=== PATIENT | female | born 1985 | race Caucasian/White ===

== ENCOUNTER → 2016-10-14 | Outpatient (CLI) | payer OTHER ==
--- NOTE | 2016-10-14 15:05 | CT ---
EXAMINATION TYPE: CT ChestAbdPelvis w con DATE OF EXAM: 10/14/2016 2:07 PM COMPARISON: CT chest 03/19/2015 HISTORY: 31-year-old female with weight loss, changes in bowel habits. Lost 23 pounds over the past c ouple months. TECHNIQUE: Contiguous axial scanning of the chest, abdomen, and pelvis performed with IV Contrast, pa tient injected with 100 mL of Omnipaque 300. Delayed images through the kidneys were obtained. Knight l/sagittal reconstructions performed. CT DLP: 423.4 mGycm Automated exposure control for dose reduction was used. FINDINGS: CHEST: The heart is normal size without pericardial effusion. There is normal caliber with conventional arch vessel branching anatomy. No thoracic lymphadenopathy. Evaluation of the lungs shows no consolidation or pleural effusion. ABDOMEN: The liver is enlarged measuring 19.1 cm craniocaudal with diffuse low-attenuation. No biliary ductal dilatation. Portal venous system is patent. There is some focal fatty sparing seen along the anterior falciform ligament. Cholecystectomy clips are present. Adrenal glands, kidneys, spleen, and pancreas appear within normal limits. No dilated small bowel, free fluid, or free air. Appendix not seen, possibly surgically absent. There is unusual, a haustral appearance to the colon and suggestion of mild circumferential wall thic kening which is at the splenic flexure and proximal third transverse colon. Oral contrast has progres sed to the proximal transverse colon. There is moderate scattered stool. Pelvis: Bladder is urine distended. The cecum hangs low in the right hemipelvis with some mass effect onto th e bladder. Uterus and ovaries are visualized with follicular change. No abnormal fluid collection in the pelvis or pelvic lymphadenopathy seen. Bones: No osseous destructive process. IMPRESSION: 1. UNUSUAL AHAUSTRAL APPEARANCE TO THE COLON WITH SUGGESTION OF MILD CIRCUMFERENTIAL WALL THICKENING AT THE HEPATIC FLEXURE AND PROXIMAL TRANSVERSE COLON. CORRELATE FOR NONSPECIFIC COLITIS INCLUDING THE POSSIBILITY OF IBD. 2. HEPATOMEGALY AND HEPATIC STEATOSIS. CORRELATE WITH LFT's, LIPID PROFILE, AND PATIENT RISK FACTORS.
== END | disposition home or self-care (01) ==
LOC: RADCTMAIN 12:10
PROVIDERS: ATTEND Family Medicine
DX: K76.0 Fatty (change of) liver, not elsewhere classified (principal); R16.0 Hepatomegaly, not elsewhere classified; K63.89 Other specified diseases of intestine
CPT/HCPCS: 71260; 74177; Q9967

== ENCOUNTER 2017-07-27 12:51 | Inpatient (IN) | payer OTHER ==
[2017-07-27 14:25] LABS: Appearance,Urine Cloudy (Clear); Bacteria,Urine Rare /hpf; Bilirubin,Urine 1+ (Negative); Blood,Urine Negative (Negative); Color,Urine Light Brown; Glucose,Urine (UA) Negative (Negative); Ketones,Urine Trace (Negative); Leukocyte Esterase,Urine Trace (Negative); Mucus,Urine Many /hpf; Nitrite,Urine Negative (Negative); Protein,Urine 1+ (Negative); RBC,Urine 5 /hpf (0-5); Specific Gravity,Urine 1.023 (1.001-1.035); Squamous Epithelial Cell,Urine 12 /hpf (0-4); WBC,Urine 5 /hpf (0-5)
[2017-07-27] MEDS ORDERED: ONDANSETRON 4 MG/2 ML VIAL IVP STA (15:26)
[2017-07-27] MEDS ORDERED: KETOROLAC 30 MG/ML 1 ML VIAL IVP STA (15:26)
[2017-07-27] MEDS ORDERED: SODIUM CHLORIDE 0.9% 1,000 ML IV STA ×2 (15:26)
[2017-07-27] MEDS ORDERED: MORPHINE SULFATE 5 MG/ML SYRINGE IV STA (15:26)
[2017-07-27] MEDS ORDERED: cefTRIAXone IN SWFI 1,000 MG/10 ML SYRINGE IVP STA (15:30)
--- NOTE | 2017-07-27 15:33 | ED ---
Abdominal Pain HPI - General Chief Complaint: Abdominal Pain Stated Complaint: Abd Pain Time Seen by Provider: 07/27/17 15:21 Source: patient Mode of arrival: ambulatory Limitations: no limitations - History of Present Illness Initial Comments: This 32-year-old white female presents with a complaint of some right flank and right abdominal pain. She states that it initially started 3 days ago but it is much worse since last night. She describes it as a very sharp severe type of pain. She's had some nausea and occasional vomiting. She denies any diarrhea. She's had some chills but no definite fever. She's had some frequency urgency and hematuria and dysuria. She's had these symptoms for approximately one month but drank some cranberry juice and fluids and thought it was getting better until recently. She denies any history of kidney stones in the past. She has not been on any antibiotics recently. She does have a history of previous cholecystectomy and appendectomy. She denies any possibility of as she's had previous tubal ligation. She relates that she has not been able to eat much recently. She tried to eat last night but states that her symptoms became much more severe with food intake. She has not attempted to eat anything today. She states that her symptoms are much worse even with water intake. She further relates that she drinks approximately 2 drinks of hard liquor per night. She denies any other complaints or modifying factors. - Related Data Home Medications Medication Instructions Recorded Confirmed No Known Home Medications [No 07/27/17 07/27/17 Known Home Medications] Allergies Allergy/AdvReac Type Severity Reaction Status Date / Time Sulfa (Sulfonamide Allergy Rash/Hives Verified 07/27/17 15:34 Antibiotics) Review of Systems ROS Statement: Those systems with pertinent positive or pertinent negative responses have been documented in the HPI. ROS Other: All systems not noted in ROS Statement are negative. Past Medical History Past Medical History: No Reported History Additional Past Medical History / Comment(s): UNEXPLAINED WEIGHT LOSS. CT OF ABD. SHOWED "SOMETHING" IN THE INTESTINES History of Any Multi-Drug Resistant Organisms: None Reported Past Surgical History: Appendectomy, Cholecystectomy, Tonsillectomy, Tubal Ligation Additional Past Surgical History / Comment(s): Ovarian Cyst; Hemorrhoidectomy Additional Past Anesthesia/Blood Transfusion Reaction / Comment(s): WAKES UP CRYING. Past Psychological History: No Psychological Hx Reported Smoking Status: Current every day smoker Past Alcohol Use History: Daily Past Drug Use History: None Reported - Past Family History Mother Additional Family Medical History / Comment(s): arthritis Father Family Medical History: No Reported History Brother(s) Family Medical History: No Reported History Sister(s) Family Medical History: No Reported History Daughter(s) Family Medical History: No Reported History Son(s) Family Medical History: No Reported History General Exam - General Exam Comments Initial Comments: GENERAL: The patient is well nourished and well hydrated. VITAL SIGNS: Heart rate, blood pressure, respiratory rate reviewed as recorded in nurse's notes. EYES: Pupils are round and reactive. Extraocular movements are intact. No conjunctival / lid redness or swelling. ENT: No external evidence of injury, swelling, or ecchymosis. Airway is patent. Throat is clear. NECK: Nontender. No swelling or evidence of injury. No subcutaneous emphysema. Trachea is midline. No thyroid mass. HEART: Regular rate and rhythm. Good peripheral pulses. LUNGS/CHEST: Breath sounds clear and equal bilaterally. No rales, rhonchi, or wheezes. No ecchymosis, subcutaneous emphysema, or tenderness. ABDOMEN: There is tenderness over the right flank and the right upper abdomen and into the midepigastric region. No palpable masses or organomegaly. No peritoneal signs. No abdominal wall swelling or ecchymosis. EXTREMITIES: No extremity tenderness. Normal muscle tone and function. No thoracolumbar tenderness. NEUROLOGIC: Sensation is grossly intact. Cranial nerve exam reveals face is symmetrical, tongue is midline, speech is clear. SKIN: No abrasions or ecchymosis is noted. No induration or masses noted. PSYCHIATRIC: Alert and oriented. Appropriate behavior and judgment. Limitations: no limitations Course Vital Signs 07/27/17 14:03 Temperature 97.7 F Pulse Rate 107 H Respiratory 20 Rate Blood Pressure 118/83 O2 Sat by Pulse 97 Oximetry Medical Decision Making - Medical Decision Making The patient was seen and examined. All diagnostics were reviewed. She does receive some Toradol, Rocephin, morphine, and Zofran intravenously. She receives ample fluid hydration. She has some minimal improvement on recheck and additional pain medications are ordered. The laboratories reviewed and does show significant elevation of the lipase, consistent with acute pancreatitis. She also has elevation of her liver function studies. The computed tomography scan shows evidence of pancreatitis. It is felt as though her pancreatitis could be due to her alcohol intake. It is felt as though she would require admission to the hospital for further treatment. She is agreeable. Case is discussed with Dr. Hubbard and he is agreeable to admission with Dr. Olson and Dr. Armas to consult. He would also like a ultrasound of the right upper abdomen to rule out choledocholithiasis. The patient is counseled regarding need to abstain from any further alcohol use. - Lab Data Result diagrams: 07/27/17 15:47 07/27/17 15:47 Lab Results 07/27/17 07/27/17 07/27/17 Range/Units 14:10 14:10 15:47 WBC (3.8-10.6) k/uL RBC (3.80-5.40) m/uL Hgb (11.4-16.0) gm/dL Hct (34.0-46.0) % MCV (80.0-100.0) fL MCH (25.0-35.0) pg MCHC (31.0-37.0) g/dL RDW (11.5-15.5) % Plt Count (150-450) k/uL Neutrophils % % Lymphocytes % % Monocytes % % Eosinophils % % Basophils % % Neutrophils # (1.3-7.7) k/uL Lymphocytes # (1.0-4.8) k/uL Monocytes # (0-1.0) k/uL Eosinophils # (0-0.7) k/uL Basophils # (0-0.2) k/uL Anisocytosis Macrocytosis Sodium 139 (137-145) mmol/L Potassium 4.4 (3.5-5.1) mmol/L Chloride 103 (98-107) mmol/L Carbon Dioxide 25 (22-30) mmol/L Anion Gap 11 mmol/L BUN 3 L (7-17) mg/dL Creatinine 0.40 L (0.52-1.04) mg/dL Est GFR (MDRD) Af Amer >60 (>60 ml/min/1.73 sqM) Est GFR (MDRD) Non-Af >60 (>60 ml/min/1.73 sqM) Glucose 94 (74-99) mg/dL Calcium 9.4 (8.4-10.2) mg/dL Total Bilirubin 2.1 H (0.2-1.3) mg/dL AST 447 H (14-36) U/L ALT 119 H (9-52) U/L Alkaline Phosphatase 321 H (38-126) U/L Total Protein 6.7 (6.3-8.2) g/dL Albumin 3.8 (3.5-5.0) g/dL Amylase 94 (30-110) U/L Lipase 1089 H (23-300) U/L Urine Color Light Brown Urine Appearance Cloudy H (Clear) Urine pH 7.0 (5.0-8.0) Ur Specific [place] 1.023 (1.001-1.035) Urine Protein 1+ H (Negative) Urine Glucose (UA) Negative (Negative) Urine Ketones Trace H (Negative) Urine Blood Negative (Negative) Urine Nitrite Negative (Negative) Urine Bilirubin 1+ H (Negative) Urine Urobilinogen 12.0 (<2.0) mg/dL Ur Leukocyte Esterase Trace H (Negative) Urine RBC 5 (0-5) /hpf Urine WBC 5 (0-5) /hpf Ur Squamous Epith Cells 12 H (0-4) /hpf Urine Bacteria Rare H (None) /hpf Urine Mucus Many H (None) /hpf Urine HCG, Qual Not Detected (Not Detectd) 07/27/17 Range/Units 15:47 WBC 8.5 (3.8-10.6) k/uL RBC 4.75 (3.80-5.40) m/uL Hgb 15.3 (11.4-16.0) gm/dL Hct 48.1 H (34.0-46.0) % MCV 101.1 H (80.0-100.0) fL MCH 32.1 (25.0-35.0) pg MCHC 31.8 (31.0-37.0) g/dL RDW 16.0 H (11.5-15.5) % Plt Count 136 L (150-450) k/uL Neutrophils % 76 % Lymphocytes % 12 % Monocytes % 9 % Eosinophils % 1 % Basophils % 1 % Neutrophils # 6.5 (1.3-7.7) k/uL Lymphocytes # 1.0 (1.0-4.8) k/uL Monocytes # 0.8 (0-1.0) k/uL Eosinophils # 0.1 (0-0.7) k/uL Basophils # 0.1 (0-0.2) k/uL Anisocytosis Slight Macrocytosis Slight Sodium (137-145) mmol/L Potassium (3.5-5.1) mmol/L Chloride (98-107) mmol/L Carbon Dioxide (22-30) mmol/L Anion Gap mmol/L BUN (7-17) mg/dL Creatinine (0.52-1.04) mg/dL Est GFR (MDRD) Af Amer (>60 ml/min/1.73 sqM) Est GFR (MDRD) Non-Af (>60 ml/min/1.73 sqM) Glucose (74-99) mg/dL Calcium (8.4-10.2) mg/dL Total Bilirubin (0.2-1.3) mg/dL AST (14-36) U/L ALT (9-52) U/L Alkaline Phosphatase (38-126) U/L Total Protein (6.3-8.2) g/dL Albumin (3.5-5.0) g/dL Amylase (30-110) U/L Lipase (23-300) U/L Urine Color Urine Appearance (Clear) Urine pH (5.0-8.0) Ur Specific [place] (1.001-1.035) Urine Protein (Negative) Urine Glucose (UA) (Negative) Urine Ketones (Negative) Urine Blood (Negative) Urine Nitrite (Negative) Urine Bilirubin (Negative) Urine Urobilinogen (<2.0) mg/dL Ur Leukocyte Esterase (Negative) Urine RBC (0-5) /hpf Urine WBC (0-5) /hpf Ur Squamous Epith Cells (0-4) /hpf Urine Bacteria (None) /hpf Urine Mucus (None) /hpf Urine HCG, Qual (Not Detectd) Disposition Clinical Impression: Right flank pain, Acute abdominal pain, Nausea and vomiting, Acute pancreatitis , Dehydration, Alcohol abuse, UTI (urinary tract infection) Disposition: ADMITTED IP TO THIS [facility] Condition: Good Time of Disposition: 16:30 Decision Date: 07/27/17 Decision Time: 16:30
[2017-07-27 16:06] LABS: Anisocytosis Slight; Basophils # (A) 0.1 k/uL (0-0.2); Basophils % (A) 1 %; Eosinophils # (A) 0.1 k/uL (0-0.7); Eosinophils % (A) 1 %; HCT 48.1 % (34.0-46.0); HGB 15.3 gm/dL (11.4-16.0); Lymphocytes % (A) 12 %; MCH 32.1 pg (25.0-35.0); MCHC 31.8 g/dL (31.0-37.0); MCV 101.1 fL (80.0-100.0); Macrocytosis Slight; Mean Platelet Volume 8.6; Monocytes # (A) 0.8 k/uL (0-1.0); Monocytes % (A) 9 %; Neutrophils # (A) 6.5 k/uL (1.3-7.7); Neutrophils % (A) 76 %; Platelet Count 136 k/uL (150-450); RBC 4.75 m/uL (3.80-5.40); WBC 8.5 k/uL (3.8-10.6)
--- NOTE | 2017-07-27 16:10 | CT ---
EXAMINATION TYPE: CT abdomen pelvis wo con DATE OF EXAM: 07/27/2017 COMPARISON: 10/14/2016 HISTORY: Right sided flank pain and hematuria CT DLP: 224.3 mGycm Examination of the solid and hollow viscera is limited given the lack of contrast. FINDINGS: LUNG BASES: No evidence for nodule. No evidence for infiltrate. LIVER/GB: Cholecystectomy clips are in place. There is evidence of hepatic steatosis. No space-occupy ing hepatic lesion. PANCREAS: Inflammatory change noted in the region of the pancreatic head and adjacent duodenum which may reflect changes of acute pancreatitis. Correlate clinically. SPLEEN: No evidence for splenomegaly. No intrasplenic lesions seen. ADRENALS: No adrenal nodules identified. No evidence for thickening. KIDNEYS: No evidence for renal mass. No nephrolithiasis. No hydronephrosis. BOWEL: Poor visualization of the appendix. No right lower quadrant inflammatory change appreciated. N o evidence of bowel obstruction. No inflammatory process. Lymph nodes: No evidence for adenopathy greater than 1 cm. Abdominal aorta: Atheromatous changes seen. No evidence for aneurysm. Genital organs: No significant abnormality. Other: No significant abnormality. IMPRESSION: 1. Findings suggest acute pancreatitis. Correlate clinically with amylase and lipase and progress karla dies recommended.
[2017-07-27 16:12] LABS: ALT 119 U/L (9-52); AST 447 U/L (14-36); Albumin 3.8 g/dL (3.5-5.0); Alkaline Phosphatase 321 U/L (38-126); Amylase 94 U/L (30-110); Anion Gap 11 mmol/L; Blood Urea Nitrogen 3 mg/dL (7-17); Calcium 9.4 mg/dL (8.4-10.2); Carbon Dioxide 25 mmol/L (22-30); Chloride 103 mmol/L (98-107); Glucose 94 mg/dL (74-99); Lipase 1089 U/L (23-300); Potassium 4.4 mmol/L (3.5-5.1); Sodium 139 mmol/L (137-145); Total Bilirubin 2.1 mg/dL (0.2-1.3); Total Protein 6.7 g/dL (6.3-8.2)
[2017-07-27] MEDS ORDERED: HYDROmorphone 2 MG/ML 1 ML SYRINGE IVP STA (16:34)
[2017-07-27] MEDS ORDERED: NALOXONE 0.4 MG/ML 1 ML VIAL IV PRN (16:41)
[2017-07-27] MEDS ORDERED: ACETAMINOPHEN TAB 325 MG TAB PO PRN (16:56)
[2017-07-27] MEDS ORDERED: HYDROmorphone 0.5 MG/0.5 ML SYRINGE IVP PRN (16:56)
[2017-07-27 20:10] VITALS: BMI 18.1
[2017-07-27] MEDS: ONDANSETRON 4 MG/2 ML VIAL IVP PRN (20:36)
[2017-07-27] MEDS: HYDROmorphone 2 MG/ML 1 ML SYRINGE IVP PRN ×2 (20:37→23:49)
[2017-07-28] MEDS: HYDROmorphone 2 MG/ML 1 ML SYRINGE IVP PRN ×4 (06:24→19:43)
[2017-07-28 07:20] LABS: ALT 84 U/L (9-52); AST 248 U/L (14-36); Albumin 2.7 g/dL (3.5-5.0); Alkaline Phosphatase 213 U/L (38-126); Amylase 64 U/L (30-110); Anion Gap 6 mmol/L; Blood Urea Nitrogen 3 mg/dL (7-17); Carbon Dioxide 27 mmol/L (22-30); Chloride 108 mmol/L (98-107); Glucose 75 mg/dL (74-99); Lipase 840 U/L (23-300); Magnesium 1.4 mg/dL (1.6-2.3); Phosphorus 4.2 mg/dL (2.5-4.5); Potassium 4.3 mmol/L (3.5-5.1); Sodium 141 mmol/L (137-145); Total Bilirubin 1.5 mg/dL (0.2-1.3)
[2017-07-28 07:39] LABS: Basophils % (A) 1 %; Eosinophils # (A) 0.1 k/uL (0-0.7); Eosinophils % (A) 1 %; HCT 36.8 % (34.0-46.0); Lymphocytes # (A) 0.8 k/uL (1.0-4.8); Lymphocytes % (A) 18 %; MCHC 31.7 g/dL (31.0-37.0); MCV 103.9 fL (80.0-100.0); Macrocytosis Moderate; Mean Platelet Volume 8.6; Monocytes # (A) 0.4 k/uL (0-1.0); Monocytes % (A) 10 %; Neutrophils # (A) 3.1 k/uL (1.3-7.7); Neutrophils % (A) 69 %; RBC 3.54 m/uL (3.80-5.40); RDW 14.8 % (11.5-15.5); WBC 4.6 k/uL (3.8-10.6)
[2017-07-28 07:40] LABS: HGB 11.7 gm/dL (11.4-16.0); Platelet Count 95 k/uL (150-450)
[2017-07-28] MEDS: PANTOPRAZOLE 40 MG/10 ML VIAL IV SCH (08:22)
[2017-07-28] MEDS: ENOXAPARIN 40 MG/0.4 ML SYRINGE SQ SCH (08:22)
--- NOTE | 2017-07-28 08:29 | US ---
EXAMINATION TYPE: US abdomen limited DATE OF EXAM: 07/28/2017 COMPARISON: CT CLINICAL HISTORY: Pain. Mid abdominal pain, right lateral abdomen pain, back pain, chills; UTI; Pancr eatitis; GB removed EXAM MEASUREMENTS: Liver Length: 16.8 cm Gallbladder Wall: surgically removed CBD: 0.5 cm Right Kidney: 9.3 x 5.8 x 4.0 cm Pancreas: hyperechoic Liver: hyperechoic suggests fatty liver Gallbladder: surgically absent Evidence for sonographic Burr's sign: No CBD: wnl Right Kidney: No hydronephrosis or masses seen IMPRESSION: 1. Fatty liver. 2. Fatty infiltration of the pancreas.
[2017-07-28] MEDS: ONDANSETRON 4 MG/2 ML VIAL IVP PRN ×2 (10:15→18:41)
--- NOTE | 2017-07-28 10:24 | P.CONS ---
History of Present Illness - Reason for Consult Consult date: 07/28/17 Pancreatitis Requesting physician: Rosa Isela Hubbard - Chief Complaint Abdominal pain - History of Present Illness 32-year-old female made with acute right upper abdominal midepigastric pain 4 days with elevated pancreatic enzymes consistent with acute pancreatitis. Patient has a history of daily alcohol vodka consumption. Last alcohol drink day prior to admission. Additionally she has a history of calculus cholecystitis status post cholecystectomy 2014. No history of documented/ hospitalizations for pancreatitis. Denies fever chills hematemesis hematochezia melena. Dark-colored urine patient suspects possibly secondary to UTI. Denies acholic stools. Urine culture pending. White count 4.6-8.5. Hemoglobin 11.7. MCV 101-103. Platelet 95-136. Total bilirubin 1.5-2.1. AST 248-447. ALT 84-118. Alkaline phosphatase 213-321. Lipase 840-1089. Amylase 64-94. CT abdomen inflammatory changes in the region the pancreatic head and adjacent duodenum may reflect changes of acute pancreatitis. No evidence of hepatic steatosis. No space-occupying hepatic lesion. Ultrasound abdomen that a liver. Fatty infiltration of the pancreas. CBD 0.5 cm. Review of Systems Constitutional: Denies fever, chills, sweats, weight gain, or loss. HEENT: Negative for migraines, blurred vision or loss, earaches, drainage, tinnitus, oral mucosal lesions, dysphagia, or odynophagia. CARDIAC: Negative for chest pain, arrhythmias, or palpitation. RESPIRATORY: 15 cigarette dependency. Negative for shortness of breath, hemoptysis, cough, or sputum production. GI: See HPI for pertinent findings. : Negative for hematuria, urgency, frequency, polyuria, or dysuria. GYNc: Denies possibility of . Negative vaginal discharge. MUSCULOSKELETAL: Negative for muscle aches, swelling, arthritis, and arthralgias. NEUROLOGIC: Negative for stroke or TIA. ENDOCRINE: Negative for thyroid problems. SKIN: Negative for rash or itching. PSYCHIATRIC: Negative history for depression and anxiety Past Medical History Past Medical History: No Reported History Additional Past Medical History / Comment(s): UNEXPLAINED WEIGHT LOSS. CT OF ABD. SHOWED "SOMETHING" IN THE INTESTINES History of Any Multi-Drug Resistant Organisms: None Reported Past Surgical History: Appendectomy, Cholecystectomy, Tonsillectomy, Tubal Ligation Additional Past Surgical History / Comment(s): Ovarian Cyst; Hemorrhoidectomy Additional Past Anesthesia/Blood Transfusion Reaction / Comm: WAKES UP CRYING. Past Psychological History: No Psychological Hx Reported Smoking Status: Current every day smoker Past Alcohol Use History: Daily Additional Past Alcohol Use History / Comment(s): SMOKES <1/2 PPD SINCE 2008 Past Drug Use History: None Reported - Past Family History Mother Additional Family Medical History / Comment(s): arthritis Father Family Medical History: No Reported History Brother(s) Family Medical History: No Reported History Sister(s) Family Medical History: No Reported History Daughter(s) Family Medical History: No Reported History Son(s) Family Medical History: No Reported History Medications and Allergies Home Medications Medication Instructions Recorded Confirmed Type No Known Home Medications [No 07/27/17 07/27/17 History Known Home Medications] Allergies Allergy/AdvReac Type Severity Reaction Status Date / Time Sulfa (Sulfonamide Allergy Rash/Hives Verified 07/27/17 15:34 Antibiotics) Physical Exam Vitals: Vital Signs Temp Pulse Pulse Resp BP BP Pulse Ox 07/28/17 07:00 98.3 F 88 16 96/58 96 07/27/17 22:13 97.4 F L 113 H 17 98/62 94 L 07/27/17 18:53 97.7 F 98 16 115/70 97 07/27/17 18:27 98.0 F 07/27/17 18:00 95 18 106/69 96 07/27/17 17:00 97.5 F L 90 16 115/74 98 07/27/17 15:06 92 16 96 07/27/17 14:03 97.7 F 107 H 20 118/83 97 Intake and Output 07/27/17 07/28/17 07/28/17 22:59 06:59 14:59 Intake Total 100 0 Balance 100 0 Intake: IV 100 Sodium Chloride 0.9% 1, 100 000 ml @ 100 mls/hr IV . Q10H STA Rx#:[id number] Oral 0 Other: Voiding Method Toilet Toilet Weight 47.99 kg General appearance: The patient is alert, oriented, in no acute distress. HET: Head is normocephalic and atraumatic. Pupils are equal and reactive. Oropharynx is clear without lesions. Neck: Supple without lymphadenopathy. Trachea midline. Heart: S1 S2. Regular rate and rhythm. Lungs: No crackles or wheezes are heard. Abdomen: Soft, melena midepigastric tenderness right upper quadrant, nondistended with bowel sounds. No peritoneal signs. No palpable organomegaly or masses. Extremities: Normal skin color and turgor. No cyanosis, rash, ulceration, clubbing, or edema. Radial and pedal pulses are 2/4 bilaterally. Neurological: No focal deficits. Strength and sensation are grossly intact. Results CBC & Chem 7: 07/28/17 06:41 07/28/17 06:41 Labs: Abnormal Lab Results - Last 24 Hours (Table) 07/27/17 07/27/17 07/27/17 Range/Units 14:10 15:47 15:47 RBC (3.80-5.40) m/uL Hct 48.1 H (34.0-46.0) % MCV 101.1 H (80.0-100.0) fL RDW 16.0 H (11.5-15.5) % Plt Count 136 L (150-450) k/uL Lymphocytes # (1.0-4.8) k/uL Chloride (98-107) mmol/L BUN 3 L (7-17) mg/dL Creatinine 0.40 L (0.52-1.04) mg/dL Calcium (8.4-10.2) mg/dL Magnesium (1.6-2.3) mg/dL Total Bilirubin 2.1 H (0.2-1.3) mg/dL AST 447 H (14-36) U/L ALT 119 H (9-52) U/L Alkaline Phosphatase 321 H (38-126) U/L Total Protein (6.3-8.2) g/dL Albumin (3.5-5.0) g/dL Lipase 1089 H (23-300) U/L Urine Appearance Cloudy H (Clear) Urine Protein 1+ H (Negative) Urine Ketones Trace H (Negative) Urine Bilirubin 1+ H (Negative) Ur Leukocyte Esterase Trace H (Negative) Ur Squamous Epith Cells 12 H (0-4) /hpf Urine Bacteria Rare H (None) /hpf Urine Mucus Many H (None) /hpf 07/28/17 07/28/17 Range/Units 06:41 06:41 RBC 3.54 L (3.80-5.40) m/uL Hct (34.0-46.0) % MCV 103.9 H (80.0-100.0) fL RDW (11.5-15.5) % Plt Count 95 L (150-450) k/uL Lymphocytes # 0.8 L (1.0-4.8) k/uL Chloride 108 H (98-107) mmol/L BUN 3 L (7-17) mg/dL Creatinine 0.43 L (0.52-1.04) mg/dL Calcium 8.0 L (8.4-10.2) mg/dL Magnesium 1.4 L (1.6-2.3) mg/dL Total Bilirubin 1.5 H (0.2-1.3) mg/dL AST 248 H (14-36) U/L ALT 84 H (9-52) U/L Alkaline Phosphatase 213 H (38-126) U/L Total Protein 5.0 L (6.3-8.2) g/dL Albumin 2.7 L (3.5-5.0) g/dL Lipase 840 H (23-300) U/L Urine Appearance (Clear) Urine Protein (Negative) Urine Ketones (Negative) Urine Bilirubin (Negative) Ur Leukocyte Esterase (Negative) Ur Squamous Epith Cells (0-4) /hpf Urine Bacteria (None) /hpf Urine Mucus (None) /hpf Microbiology - Last 24 Hours (Table) 07/27/17 14:10 Urine Culture - Preliminary Urine,Voided CT scan - abdomen: report reviewed (Dr. Hutchinson) CT scan - pelvis: report reviewed (Dr. Hutchinson) Assessment and Plan (1) Acute pancreatitis Narrative/Plan: Suspect alcohol related with superimposed alcohol hepatitis. Passage of microlithiasis cannot be entirely excluded but felt to be less likely. Current Visit: Yes Status: Acute Code(s): K85.90 - ACUTE PANCREATITIS WITHOUT NECROSIS OR INFECTION, UNSP SNOMED Code(s): 795885346 (2) Alcoholic hepatitis without ascites Current Visit: Yes Status: Acute Code(s): K70.10 - ALCOHOLIC HEPATITIS WITHOUT ASCITES SNOMED Code(s): 271771041 (3) Thrombocytopenia Current Visit: Yes Status: Acute Code(s): D69.6 - THROMBOCYTOPENIA, UNSPECIFIED SNOMED Code(s): 942084475 (4) Acute abdominal pain Current Visit: Yes Status: Acute Code(s): R10.9 - UNSPECIFIED ABDOMINAL PAIN SNOMED Code(s): 149217466 (5) Alcohol abuse Current Visit: Yes Status: Acute Code(s): F10.10 - ALCOHOL ABUSE, UNCOMPLICATED SNOMED Code(s): 94492413 (6) History of gallstones Current Visit: Yes Status: Resolved Code(s): Z87.19 - PERSONAL HISTORY OF OTHER DISEASES OF THE DIGESTIVE SYSTEM SNOMED Code(s): 569093265 (7) History of laparoscopic cholecystectomy Current Visit: Yes Status: Resolved Code(s): Z98.890 - OTHER SPECIFIED POSTPROCEDURAL STATES; Z90.49 - ACQUIRED ABSENCE OF OTHER SPECIFIED PARTS OF DIGESTIVE TRACT SNOMED Code(s): 639735928 Plan: 1. Patient requesting diet will start clear liquids and advance as tolerated. 2. GI prophylaxis. IV hydration supportive measures. 3. Alcohol abstinence was advised. 4. Will follow with you. Thank you for this kind referral and the opportunity to participate in the care of your patient. This consultation was discussed with Dr. Hutchinson. The impression and plan of care have been directed as dictated.
--- NOTE | 2017-07-28 11:22 | P.GSCN ---
History of Present Illness Consult date: 07/28/17 Reason for Consult: Acute right upper epigastric pain History of present illness: 32-year-old female being seen at the request of the attending for surgical eval developed a sudden onset of acute right upper quadrant abdominal discomfort onset 4 days prior. presented to the emergency room to be evaluated for the above-mentioned symptoms. does give a history of drinking 3-4 drinks of alcohol vodka last drink day before admission patient states that she has been drinking alcohol for the past several years. According to the patient she has not had any prior episodes of pancreatitis. States her last hospitalization was in 2014. at that time did undergo a cholecystectomy for history of acalculous cholecystitis by dr bennett In the emergency room patient did undergo a ultrasound showed fatty liver fatty infiltration of the pancreas the CAT scan of the abdomen pelvis without contrast report reviewed suggestive of acute pancreatitis lipase on admission 1089. AST 447, ALT 119, this morning labs reviewed improvement of the lipase down to 840, amylase 64, AST 248, ALT 84 alkaline phosphatase 213 total bilirubin improved at 1.5. continues to report having right flank pain "seems to cramp when I tried to drink liquids Past medical history none Past surgical history appendectomy, cholecystectomy, tubal ligation, tonsillectomy Review of Systems Essentially unremarkable except as mentioned in the present illness Past Medical History Past Medical History: No Reported History Additional Past Medical History / Comment(s): UNEXPLAINED WEIGHT LOSS. CT OF ABD. SHOWED "SOMETHING" IN THE INTESTINES History of Any Multi-Drug Resistant Organisms: None Reported Past Surgical History: Appendectomy, Cholecystectomy, Tonsillectomy, Tubal Ligation Additional Past Surgical History / Comment(s): Ovarian Cyst; Hemorrhoidectomy Additional Past Anesthesia/Blood Transfusion Reaction / Comm: WAKES UP CRYING. Past Psychological History: No Psychological Hx Reported Smoking Status: Current every day smoker Past Alcohol Use History: Daily Additional Past Alcohol Use History / Comment(s): SMOKES <1/2 PPD SINCE 2008 Past Drug Use History: None Reported - Past Family History Mother Additional Family Medical History / Comment(s): arthritis Father Family Medical History: No Reported History Brother(s) Family Medical History: No Reported History Sister(s) Family Medical History: No Reported History Daughter(s) Family Medical History: No Reported History Son(s) Family Medical History: No Reported History Medications and Allergies Home Medications Medication Instructions Recorded Confirmed Type HYDROcodone/APAP 5-325MG [[place] 1 tab PO Q6HR PRN #20 tab 07/29/17 Rx 5-325] Allergies Allergy/AdvReac Type Severity Reaction Status Date / Time Sulfa (Sulfonamide Allergy Rash/Hives Verified 07/27/17 15:34 Antibiotics) Surgical - Exam Vital Signs Temp Pulse Resp BP Pulse Ox 97.7 F 107 H 20 118/83 97 07/27/17 14:03 07/27/17 14:03 07/27/17 14:03 07/27/17 14:03 07/27/17 14:03 GENERAL APPEARANCE: 32 -year-old female teary-eyed this morning stating she needs to stop drinking alcohol "maybe this is a good thing a wake up call patient is alert, oriented, in no acute distress. VITAL SIGNS: Reviewed HEENT: Head is normocephalic and atraumatic. Pupils are equal and reactive. The nares are patent. Oropharynx is clear without lesions. NECK: Supple without lymphadenopathy. Traches midline. HEART: S1, S2. Regular rate and rhythm. No murmur noted denying chest pain LUNGS: No crackles or wheezes are heard. On room air no shortness of breath ABDOMEN: Soft, mild tenderness epigastric area radiates to the right upper flank nondistended with good bowel sounds. No peritoneal signs. No palpable organomegaly or masses. Passing gas no nausea no vomiting EXTREMITIES: Normal skin color and turgor. No cyanosis, rash, ulceration, clubbing or edema. Radial pedal pulses are 2/4 bilaterally. NEUROLOGICAL: No focal deficits. Strength and sensation are grossly intact. Results - Labs 07/28/17 06:41 07/29/17 06:34 Abnormal Lab Results - Last 24 Hours (Table) 07/27/17 07/27/17 07/27/17 Range/Units 14:10 15:47 15:47 RBC (3.80-5.40) m/uL Hct 48.1 H (34.0-46.0) % MCV 101.1 H (80.0-100.0) fL RDW 16.0 H (11.5-15.5) % Plt Count 136 L (150-450) k/uL Lymphocytes # (1.0-4.8) k/uL Chloride (98-107) mmol/L BUN 3 L (7-17) mg/dL Creatinine 0.40 L (0.52-1.04) mg/dL Calcium (8.4-10.2) mg/dL Magnesium (1.6-2.3) mg/dL Total Bilirubin 2.1 H (0.2-1.3) mg/dL AST 447 H (14-36) U/L ALT 119 H (9-52) U/L Alkaline Phosphatase 321 H (38-126) U/L Total Protein (6.3-8.2) g/dL Albumin (3.5-5.0) g/dL Lipase 1089 H (23-300) U/L Urine Appearance Cloudy H (Clear) Urine Protein 1+ H (Negative) Urine Ketones Trace H (Negative) Urine Bilirubin 1+ H (Negative) Ur Leukocyte Esterase Trace H (Negative) Ur Squamous Epith Cells 12 H (0-4) /hpf Urine Bacteria Rare H (None) /hpf Urine Mucus Many H (None) /hpf 07/28/17 07/28/17 Range/Units 06:41 06:41 RBC 3.54 L (3.80-5.40) m/uL Hct (34.0-46.0) % MCV 103.9 H (80.0-100.0) fL RDW (11.5-15.5) % Plt Count 95 L (150-450) k/uL Lymphocytes # 0.8 L (1.0-4.8) k/uL Chloride 108 H (98-107) mmol/L BUN 3 L (7-17) mg/dL Creatinine 0.43 L (0.52-1.04) mg/dL Calcium 8.0 L (8.4-10.2) mg/dL Magnesium 1.4 L (1.6-2.3) mg/dL Total Bilirubin 1.5 H (0.2-1.3) mg/dL AST 248 H (14-36) U/L ALT 84 H (9-52) U/L Alkaline Phosphatase 213 H (38-126) U/L Total Protein 5.0 L (6.3-8.2) g/dL Albumin 2.7 L (3.5-5.0) g/dL Lipase 840 H (23-300) U/L Urine Appearance (Clear) Urine Protein (Negative) Urine Ketones (Negative) Urine Bilirubin (Negative) Ur Leukocyte Esterase (Negative) Ur Squamous Epith Cells (0-4) /hpf Urine Bacteria (None) /hpf Urine Mucus (None) /hpf Microbiology - Last 24 Hours (Table) 07/27/17 14:10 Urine Culture - Preliminary Urine,Voided Diabetes panel 07/27/17 07/28/17 Range/Units 15:47 06:41 Sodium 139 141 (137-145) mmol/L Potassium 4.4 4.3 (3.5-5.1) mmol/L Chloride 103 108 H (98-107) mmol/L Carbon Dioxide 25 27 (22-30) mmol/L BUN 3 L 3 L (7-17) mg/dL Creatinine 0.40 L 0.43 L (0.52-1.04) mg/dL Glucose 94 75 (74-99) mg/dL Calcium 9.4 8.0 L (8.4-10.2) mg/dL AST 447 H 248 H (14-36) U/L ALT 119 H 84 H (9-52) U/L Alkaline Phosphatase 321 H 213 H (38-126) U/L Total Protein 6.7 5.0 L (6.3-8.2) g/dL Albumin 3.8 2.7 L (3.5-5.0) g/dL Calcium panel 07/27/17 07/28/17 Range/Units 15:47 06:41 Calcium 9.4 8.0 L (8.4-10.2) mg/dL Phosphorus 4.2 (2.5-4.5) mg/dL Albumin 3.8 2.7 L (3.5-5.0) g/dL Pituitary panel 07/27/17 07/28/17 Range/Units 15:47 06:41 Sodium 139 141 (137-145) mmol/L Potassium 4.4 4.3 (3.5-5.1) mmol/L Chloride 103 108 H (98-107) mmol/L Carbon Dioxide 25 27 (22-30) mmol/L BUN 3 L 3 L (7-17) mg/dL Creatinine 0.40 L 0.43 L (0.52-1.04) mg/dL Glucose 94 75 (74-99) mg/dL Calcium 9.4 8.0 L (8.4-10.2) mg/dL Adrenal panel 07/27/17 07/28/17 Range/Units 15:47 06:41 Sodium 139 141 (137-145) mmol/L Potassium 4.4 4.3 (3.5-5.1) mmol/L Chloride 103 108 H (98-107) mmol/L Carbon Dioxide 25 27 (22-30) mmol/L BUN 3 L 3 L (7-17) mg/dL Creatinine 0.40 L 0.43 L (0.52-1.04) mg/dL Glucose 94 75 (74-99) mg/dL Calcium 9.4 8.0 L (8.4-10.2) mg/dL Total Bilirubin 2.1 H 1.5 H (0.2-1.3) mg/dL AST 447 H 248 H (14-36) U/L ALT 119 H 84 H (9-52) U/L Alkaline Phosphatase 321 H 213 H (38-126) U/L Total Protein 6.7 5.0 L (6.3-8.2) g/dL Albumin 3.8 2.7 L (3.5-5.0) g/dL Assessment and Plan Assessment: Impression Present on admission epigastric right flank pain suspect due to acute pancreatitis Chronic alcoholism daily consumption 3-4 drinks vodka Alcohol hepatitis without ascites thrombocytopenia History of gallstones History of a laparoscopic cholecystectomy 2014 Current every day smoker Plan No evidence of an acute surgical abdomen at this time Continue IV hydration Pain control Smoking cessation information to be provided Reinforce alcohol abstinence Repeat labs in the morning DVT and GI prophylaxis We'll sign off re-eval as needed Consultation dictated for Dr. bennett The above impression and plan of care have been discussed and directed by signing physician. iLla Villatoro nurse practitioner acting as scribe for signing physician.
[2017-07-28] MEDS ORDERED: HYDROmorphone 2 MG/ML 1 ML SYRINGE IVP PRN (11:43)
[2017-07-28] MEDS ORDERED: cefTRIAXone IN SWFI 1,000 MG/10 ML SYRINGE IVP SCH (12:00)
[2017-07-28] MEDS: NICOTINE 14MG/24HR PATCH TRANSDERM SCH (12:14)
[2017-07-28] MEDS: D5-0.45% NACL WITH KCL 20MEQ/L 1,000 ML IV SCH ×2 (12:27→22:09)
[2017-07-28] MEDS: HYDROcodone/APAP 7.5-325MG 1 EACH TAB PO PRN ×2 (14:21→21:42)
--- NOTE | 2017-07-28 14:46 | P.HPIM ---
History of Present Illness H&P Date: 07/28/17 Chief Complaint: Abdominal pain This is a 32-year-old patient of Dr. Gonzalez with past medical history laparoscopic cholecystectomy in March [address] Olson. He last saw Dr. Pearce one year ago. She has been in good health until about 5 days ago she started with back pain on the right side and then about 3-4 days ago the back pain came around to the front in the right upper quadrant. Vomiting started yesterday and she vomited 3 times at home. She denies any diarrhea and she states her bowel movements have been normal. She has complained of chills but no fever. Patient came into [facility] emergency center for evaluation. White count was normal. Electrolytes within normal limits. Urinalysis was cloudy, light brown, urobilirubin 12, leukoesterase trace, bacteria rare, squamous cells 12. HCG was not detected. Amylase [address] of the abdomen and pelvis suggests acute pancreatitis. Abdominal ultrasound shows fatty liver and fatty infiltration of the pancreas. Patient was given Toradol, Rocephin, morphine and Zofran in the emergency center as well as IV hydration. Patient was admitted to the [facility] floor and consult requested with Dr. Olson and Dr. Hutchinson. Regarding alcohol intake patient drinks 2 beverages per day but she states not every day. Review of Systems All systems: negative Constitutional: Denies chills, Denies fever Eyes: denies blurred vision, denies pain Ears, nose, mouth and throat: Denies headache, Denies sore throat Cardiovascular: Denies chest pain, Denies shortness of breath Respiratory: Denies cough Gastrointestinal: Reports abdominal pain, Reports nausea, Reports vomiting, Denies diarrhea, Denies melena Genitourinary: Denies dysuria, Denies hematuria Musculoskeletal: Denies myalgias Integumentary: Denies pruritus, Denies rash Neurological: Denies numbness, Denies weakness Psychiatric: Denies anxiety, Denies depression Endocrine: Denies fatigue, Denies weight change Past Medical History Past Medical History: No Reported History Additional Past Medical History / Comment(s): Pancreatitis History of Any Multi-Drug Resistant Organisms: None Reported Past Surgical History: Appendectomy, Cholecystectomy, Tonsillectomy, Tubal Ligation Additional Past Surgical History / Comment(s): Ovarian Cyst; Hemorrhoidectomy Additional Past Anesthesia/Blood Transfusion Reaction / Comment(s): WAKES UP CRYING. Past Psychological History: No Psychological Hx Reported Smoking Status: Current every day smoker Past Alcohol Use History: Daily Additional Past Alcohol Use History / Comment(s): SMOKES <1/2 PPD SINCE 2008 patient drinks 2 alcoholic beverages daily. Past Drug Use History: None Reported - Past Family History Mother Family Medical History: Osteoarthritis (OA) Additional Family Medical History / Comment(s): Mother is 66 years of age with no major medical problems. Father Family Medical History: No Reported History Additional Family Medical History / Comment(s): Father is alive in his 60s but she does not know any of his medical problems. Brother(s) Family Medical History: No Reported History Additional Family Medical History / Comment(s): Patient has 3 half-brothers with no major medical problems. Sister(s) Family Medical History: No Reported History Additional Family Medical History / Comment(s): Patient does not have any sisters. Daughter(s) Family Medical History: No Reported History Additional Family Medical History / Comment(s): Patient has one daughter with no major medical problems. Son(s) Family Medical History: No Reported History Additional Family Medical History / Comment(s): Patient has 3 sons with no major medical problems. Medications and Allergies Home Medications Medication Instructions Recorded Confirmed Type No Known Home Medications [No 07/27/17 07/27/17 History Known Home Medications] Allergies Allergy/AdvReac Type Severity Reaction Status Date / Time Sulfa (Sulfonamide Allergy Rash/Hives Verified 07/27/17 15:34 Antibiotics) Physical Exam Vitals: Vital Signs Temp Pulse Pulse Resp BP BP Pulse Ox 07/28/17 07:00 98.3 F 88 16 96/58 96 07/27/17 22:13 97.4 F L 113 H 17 98/62 94 L 07/27/17 18:53 97.7 F 98 16 115/70 97 07/27/17 18:27 98.0 F 07/27/17 18:00 95 18 106/69 96 07/27/17 17:00 97.5 F L 90 16 115/74 98 07/27/17 15:06 92 16 96 07/27/17 14:03 97.7 F 107 H 20 118/83 97 Intake and Output 07/27/17 07/28/17 07/28/17 22:59 06:59 14:59 Intake Total 100 0 Balance 100 0 Intake: IV 100 Sodium Chloride 0.9% 1, 100 000 ml @ 100 mls/hr IV . Q10H STA Rx#:[id number] Oral 0 Other: Voiding Method Toilet Toilet Weight 47.99 kg Gen: This is a thin 32-year-old female. HEENT: Head is atraumatic, normocephalic. Pupils equal, round. Sclerae is anicteric. NECK: Supple. No JVD. No lymphadenopathy. No thyromegaly. LUNGS: Clear to auscultation. No wheezes or rhonchi. No intercostal retractions. HEART: Regular rate and rhythm. No murmur. ABDOMEN: Soft. Bowel sounds are present. No masses. Mild tenderness to the epigastric and right upper quadrant. EXTREMITIES: No pedal edema. No calf tenderness. NEUROLOGICAL: Patient is awake, alert and oriented x3. Cranial nerves 2 through 12 are grossly intact. Results CBC & Chem 7: 07/28/17 06:41 07/28/17 06:41 Labs: Abnormal Lab Results - Last 24 Hours (Table) 07/27/17 07/27/17 07/27/17 Range/Units 14:10 15:47 15:47 RBC (3.80-5.40) m/uL Hct 48.1 H (34.0-46.0) % MCV 101.1 H (80.0-100.0) fL RDW 16.0 H (11.5-15.5) % Plt Count 136 L (150-450) k/uL Lymphocytes # (1.0-4.8) k/uL Chloride (98-107) mmol/L BUN 3 L (7-17) mg/dL Creatinine 0.40 L (0.52-1.04) mg/dL Calcium (8.4-10.2) mg/dL Magnesium (1.6-2.3) mg/dL Total Bilirubin 2.1 H (0.2-1.3) mg/dL AST 447 H (14-36) U/L ALT 119 H (9-52) U/L Alkaline Phosphatase 321 H (38-126) U/L Total Protein (6.3-8.2) g/dL Albumin (3.5-5.0) g/dL Lipase 1089 H (23-300) U/L Urine Appearance Cloudy H (Clear) Urine Protein 1+ H (Negative) Urine Ketones Trace H (Negative) Urine Bilirubin 1+ H (Negative) Ur Leukocyte Esterase Trace H (Negative) Ur Squamous Epith Cells 12 H (0-4) /hpf Urine Bacteria Rare H (None) /hpf Urine Mucus Many H (None) /hpf 07/28/17 07/28/17 Range/Units 06:41 06:41 RBC 3.54 L (3.80-5.40) m/uL Hct (34.0-46.0) % MCV 103.9 H (80.0-100.0) fL RDW (11.5-15.5) % Plt Count 95 L (150-450) k/uL Lymphocytes # 0.8 L (1.0-4.8) k/uL Chloride 108 H (98-107) mmol/L BUN 3 L (7-17) mg/dL Creatinine 0.43 L (0.52-1.04) mg/dL Calcium 8.0 L (8.4-10.2) mg/dL Magnesium 1.4 L (1.6-2.3) mg/dL Total Bilirubin 1.5 H (0.2-1.3) mg/dL AST 248 H (14-36) U/L ALT 84 H (9-52) U/L Alkaline Phosphatase 213 H (38-126) U/L Total Protein 5.0 L (6.3-8.2) g/dL Albumin 2.7 L (3.5-5.0) g/dL Lipase 840 H (23-300) U/L Urine Appearance (Clear) Urine Protein (Negative) Urine Ketones (Negative) Urine Bilirubin (Negative) Ur Leukocyte Esterase (Negative) Ur Squamous Epith Cells (0-4) /hpf Urine Bacteria (None) /hpf Urine Mucus (None) /hpf Microbiology - Last 24 Hours (Table) 07/27/17 14:10 Urine Culture - Preliminary Urine,Voided Thrombosis Risk Factor Assmnt - DVT/VTE Prophylaxis DVT/VTE Prophylaxis: Pharmacologic Prophylaxis ordered - Choose All That Apply Any of the Below Risk Factors Present?: No Other Risk Factors: No Other congenital or acquired thrombophilia - If yes, enter type in comment: No Thrombosis Risk Factor Assessment Level: Very Low Risk Assessment and Plan Plan: 1. Acute pancreatitis. Continue IV fluids, ceftriaxone, Dilaudid for pain control and Zofran for nausea and vomiting. Consult with Dr. Olson and Dr. Armas. 2. History of laparoscopic cholecystectomy in March 2015. 3. Tobacco use and dependence. 4. Possible alcohol abuse syndrome. Patient has stated to staff that she drinks anywhere from 2-6 drinks per day. 5. GI prophylaxis. Protonix. 6. DVT prophylaxis. Lovenox. Patient will be admitted to the hospital for a minimum of 2 night stay. Discharge plan: Return home Impression and plan of care have been directed as dictated by the signing physician. Montserrat Beltran nurse practitioner acting as scribe for signing physician.
[2017-07-28 23:11] VITALS: RESP 16; TEMP 97.4
[2017-07-29] MEDS: HYDROcodone/APAP 7.5-325MG 1 EACH TAB PO PRN (07:22)
[2017-07-29] MEDS: ENOXAPARIN 40 MG/0.4 ML SYRINGE SQ SCH (07:25)
[2017-07-29] MEDS: PANTOPRAZOLE 40 MG/10 ML VIAL IV SCH (07:25)
[2017-07-29] MEDS: NICOTINE 14MG/24HR PATCH TRANSDERM SCH (07:25)
[2017-07-29 07:32] LABS: ALT 68 U/L (9-52); AST 134 U/L (14-36); Albumin 2.5 g/dL (3.5-5.0); Alkaline Phosphatase 192 U/L (38-126); Anion Gap 5 mmol/L; Blood Urea Nitrogen <2 mg/dL (7-17); Calcium 7.9 mg/dL (8.4-10.2); Carbon Dioxide 29 mmol/L (22-30); Chloride 103 mmol/L (98-107); Glucose 86 mg/dL (74-99); Lipase 703 U/L (23-300); Potassium 3.5 mmol/L (3.5-5.1); Sodium 137 mmol/L (137-145); Total Bilirubin 1.1 mg/dL (0.2-1.3); Total Protein 4.8 g/dL (6.3-8.2)
[2017-07-29 07:49] VITALS: BP 105/70; PULSE 85
[2017-07-29] MEDS ORDERED: HYDROmorphone 0.5 MG/0.5 ML SYRINGE IVP STA (11:50)
--- NOTE | 2017-07-29 11:51 | P.PN ---
Subjective Progress Note Date: 07/29/17 Principal diagnosis: Pancreatitis hepatitis 32-year-old female admitted with acute pancreatitis hepatitis suspect alcohol related. Feels better. Tolerating advance diet. LFTs pancreatic enzymes improving. Hepatitis screen pending. Afebrile. Objective - Vital Signs Vital signs: Vital Signs Temp 97.4 F L 07/29/17 07:00 Pulse 85 07/29/17 07:00 Resp 16 07/29/17 07:00 BP 105/70 07/29/17 07:00 Pulse Ox 99 07/29/17 07:00 Intake & Output 07/28/17 07/29/17 07/29/17 18:59 06:59 18:59 Intake Total 800 640 Balance 800 640 Weight 47.99 kg Intake: IV 800 400 D5-0.45% NaCl with KCl 400 20Meq/l 1,000 ml @ 100 mls/hr IV .Q10H AMARILYS Rx#: [id number] Sodium Chloride 0.9% 1, 800 000 ml @ 100 mls/hr IV . Q10H STA Rx#:[id number] Oral 240 Other: Voiding Method Toilet Toilet Toilet # Voids 1 - Exam General appearance: The patient is alert, oriented, in no acute distress. HET: Head is normocephalic and atraumatic. Pupils are equal and reactive. Oropharynx is clear without lesions. Neck: Supple without lymphadenopathy. Trachea midline. Heart: S1 S2. Regular rate and rhythm. Lungs: No crackles or wheezes are heard. Abdomen: Soft, mild tenderness midepigastrium upper abdomen, nondistended with bowel sounds. No peritoneal signs. No palpable organomegaly or masses. Extremities: Normal skin color and turgor. No cyanosis, rash, ulceration, clubbing, or edema. Radial and pedal pulses are 2/4 bilaterally. Neurological: No focal deficits. Strength and sensation are grossly intact. - Labs CBC & Chem 7: 07/28/17 06:41 07/29/17 06:34 Labs: Abnormal Lab Results - Last 24 Hours (Table) 07/29/17 Range/Units 06:34 BUN <2 L (7-17) mg/dL Creatinine 0.40 L (0.52-1.04) mg/dL Calcium 7.9 L (8.4-10.2) mg/dL AST 134 H (14-36) U/L ALT 68 H (9-52) U/L Alkaline Phosphatase 192 H (38-126) U/L Total Protein 4.8 L (6.3-8.2) g/dL Albumin 2.5 L (3.5-5.0) g/dL Lipase 703 H (23-300) U/L Microbiology - Last 24 Hours (Table) 07/27/17 14:10 Urine Culture - Final Urine,Voided Assessment and Plan (1) Acute pancreatitis Narrative/Plan: Suspect alcohol related with superimposed alcohol hepatitis. Passage of microlithiasis cannot be entirely excluded but felt to be less likely. Current Visit: Yes Status: Acute Code(s): K85.90 - ACUTE PANCREATITIS WITHOUT NECROSIS OR INFECTION, UNSP SNOMED Code(s): 930354570 (2) Alcoholic hepatitis without ascites Current Visit: Yes Status: Acute Code(s): K70.10 - ALCOHOLIC HEPATITIS WITHOUT ASCITES SNOMED Code(s): 708704254 (3) Thrombocytopenia Current Visit: Yes Status: Acute Code(s): D69.6 - THROMBOCYTOPENIA, UNSPECIFIED SNOMED Code(s): 497066684 (4) Acute abdominal pain Current Visit: Yes Status: Acute Code(s): R10.9 - UNSPECIFIED ABDOMINAL PAIN SNOMED Code(s): 761111697 (5) Alcohol abuse Current Visit: Yes Status: Acute Code(s): F10.10 - ALCOHOL ABUSE, UNCOMPLICATED SNOMED Code(s): 28067217 (6) History of gallstones Current Visit: Yes Status: Resolved Code(s): Z87.19 - PERSONAL HISTORY OF OTHER DISEASES OF THE DIGESTIVE SYSTEM SNOMED Code(s): 267918944 (7) History of laparoscopic cholecystectomy Current Visit: Yes Status: Resolved Code(s): Z98.890 - OTHER SPECIFIED POSTPROCEDURAL STATES; Z90.49 - ACQUIRED ABSENCE OF OTHER SPECIFIED PARTS OF DIGESTIVE TRACT SNOMED Code(s): 076460598 Plan: 1. Discharge per medicine. Avoidance of alcohol. 2. Return to office in 3-4 weeks. Assessment and plan a care discussed with Dr. Hutchinson
[2017-07-29 12:42] LABS: Hepatitis A Antibody IgM Non-Reactive (Non-Reactive); Hepatitis B Core IgM Non-Reactive (Non-Reactive)
--- NOTE | 2017-07-29 13:29 | P.DS ---
Providers Date of admission: 07/27/17 16:41 Expected date of discharge: 07/29/17 Attending physician: Rosa Isela Hubbard Consults: 07/27/17 17:01 Consult Physician Routine Consulting Provider: Regina Olson Consult Reason/Comments: abd pain Do you want consulting provider notified?: Yes Primary care physician: [facility] Course: This is a 32-year-old patient of Dr. Gonzalez with past medical history laparoscopic cholecystectomy in March [address] Olson. She last saw Dr. Gonzalez one year ago. She has been in good health until about 5 days ago she started with back pain on the right side and then about 3-4 days ago the back pain came around to the front in the right upper quadrant. Vomiting started yesterday and she vomited 3 times at home. She denies any diarrhea and she states her bowel movements have been normal. She has complained of chills but no fever. Patient came into [facility] emergency center for evaluation. White count was normal. Electrolytes within normal limits. Urinalysis was cloudy, light brown, urobilirubin 12, leukoesterase trace, bacteria rare, squamous cells 12. HCG was not detected. Amylase [address] of the abdomen and pelvis suggests acute pancreatitis. Abdominal ultrasound shows fatty liver and fatty infiltration of the pancreas. Patient was given Toradol, Rocephin, morphine and Zofran in the emergency center as well as IV hydration. Patient was admitted to the [facility] floor and consult requested with Dr. Olson and Dr. Hutchinson. Regarding alcohol intake patient drinks 2 beverages per day but she states not every day. 07/29: Repeat labs showed a total bilirubin of 1.1, AST 134, ALT 68, alkaline phosphatase 192. Lipase is 703. Patient states she has had some pain in the epigastric and right back area but improving. Patient has tolerated clear liquid diet. Patient is anxious to be discharged home and will be discharged today in stable condition. Patient did have episode where she presented to the nurse appeared to be hallucinating and confused. Patient states she has not been sleeping for a number of days and also states it could be related to her not being on alcohol. Discharge diagnoses: 1. Acute pancreatitis. 2. History of laparoscopic cholecystectomy in March 2015. 3. Tobacco use and dependence. 4. Possible alcohol abuse syndrome. Discharge plan: Return home Impression and plan of care have been directed as dictated by the signing physician. Montserrat Beltran nurse practitioner acting as scribe for signing physician. Patient Condition at Discharge: Good Plan - Discharge Summary New Discharge Prescriptions: New HYDROcodone/APAP 5-325MG [[place] 5-325] 1 tab PO Q6HR PRN #20 tab PRN Reason: Pain Discharge Medication List HYDROcodone/APAP 5-325MG [[place] 5-325] 1 tab PO Q6HR PRN #20 tab 07/29/17 [Rx] Follow up Appointment(s)/Referral(s): Kendra Hutchinson MD [STAFF PHYSICIAN] - 09/02/17 2:45 pm (pancreatitis) Elvis Gonzalez DO [Primary Care Provider] - 1 Week ( office closes at noon on Thursday. Patient will have to call and schedule own appt.) Patient Instructions/Handouts: Hydrocodone/Acetaminophen (By mouth), How to Stop Smoking (DC), Pancreatitis (DC), Abuse of Alcohol (DC) Activity/Diet/Wound Care/Special Instructions: [place] diet until weekend, no alcohol Discharge Disposition: HOME SELF-CARE
== END 2017-07-29 13:11 | disposition home or self-care (01) | DRG 439 ==
LOC: EC 12:51 → 5MS5E 16:41
PROVIDERS: ADMIT Internal Medicine; ATTEND Internal Medicine
DX: K85.20 Alcohol induced acute pancreatitis without necrosis or infection (principal); N39.0 Urinary tract infection, site not specified; D69.6 Thrombocytopenia, unspecified; K70.10 Alcoholic hepatitis without ascites; K76.0 Fatty (change of) liver, not elsewhere classified; F10.20 Alcohol dependence, uncomplicated; F17.210 Nicotine dependence, cigarettes, uncomplicated; Z87.19 Personal history of other diseases of the digestive system; Z82.61 Family history of arthritis; Z88.2 Allergy status to sulfonamides; Z90.89 Acquired absence of other organs; Z90.49 Acquired absence of other specified parts of digestive tract; Z98.51 Tubal ligation status; Z79.891 Long term (current) use of opiate analgesic
CPT/HCPCS: 36415; 74176; 76705; 80053; 80074; 81001; 81025; 82150; 83690; 83735; 84100; 85025; 87086; 96361; 96374; 96375; 99285

== ENCOUNTER 2020-05-19 18:55 | Emergency (ER) | payer OTHER ==
--- NOTE | 2020-05-19 19:14 | ED ---
Psych HPI <Richie Carter - Last Filed: 05/20/20 06:41> - General Source: RN notes reviewed, old records reviewed Limitations: altered mental status - History of Present Illness MD Complaint: suicidal ideation, feels depressed, other (Intoxicated) -: unknown Associated Psychiatric Symptoms: depression, suicidal ideation History of same: Yes Quality: constant, getting worse Improves With: none Worsens With: alcohol Context: recent alcohol abuse Associated Symptoms: denies other symptoms Treatments Prior to Arrival: placed on mental health hold If Self Harm: admits thoughts of self harm <Luis Alberto Reid - Last Filed: 05/20/20 17:27> - General Stated Complaint: Mental Health Time Seen by Provider: 05/19/20 19:03 - History of Present Illness Initial Comments: This is a 32-year-old female presenting with intoxication, patient presented for suicidal thoughts and depression. Patient's brought in by EMS and PD, they're contacted by family was concerned or patient's significant intoxication and's 3. Stores of same as showing to kill himself. (Luis Alberto Reid) - Related Data Home Medications Medication Instructions Recorded Confirmed Furosemide [Lasix] 40 mg PO BID 05/19/20 05/19/20 Spironolactone 150 mg PO DAILY 05/19/20 05/19/20 Unknown Blood Pressure Med 1 tab PO DAILY 05/19/20 05/19/20 Allergies Allergy/AdvReac Type Severity Reaction Status Date / Time Sulfa (Sulfonamide Allergy Rash/Hives Verified 07/27/17 15:34 Antibiotics) Review of Systems ROS Other: All systems not noted in ROS Statement are negative. <Richie Carter - Last Filed: 05/20/20 06:41> ROS Other: All systems not noted in ROS Statement are negative. <Luis Alberto Reid - Last Filed: 05/20/20 17:27> ROS Statement: Those systems with pertinent positive or pertinent negative responses have been documented in the HPI. Past Medical History Past Medical History: No Reported History Additional Past Medical History / Comment(s): UNEXPLAINED WEIGHT LOSS. CT OF ABD. SHOWED "SOMETHING" IN THE INTESTINES History of Any Multi-Drug Resistant Organisms: None Reported Past Surgical History: Appendectomy, Cholecystectomy, Tonsillectomy, Tubal Ligation Additional Past Surgical History / Comment(s): Ovarian Cyst; Hemorrhoidectomy Additional Past Anesthesia/Blood Transfusion Reaction / Comment(s): WAKES UP CRYING. Past Psychological History: No Psychological Hx Reported Past Alcohol Use History: Daily Additional Past Alcohol Use History / Comment(s): SMOKES <1/2 PPD SINCE 2008 Past Drug Use History: None Reported - Past Family History Mother Family Medical History: Osteoarthritis (OA) Additional Family Medical History / Comment(s): arthritis Father Family Medical History: No Reported History Additional Family Medical History / Comment(s): Father is alive in his 60s but she does not know any of his medical problems. Brother(s) Family Medical History: No Reported History Additional Family Medical History / Comment(s): Patient has 3 half-brothers with no major medical problems. Sister(s) Family Medical History: No Reported History Additional Family Medical History / Comment(s): Patient does not have any sisters. Daughter(s) Family Medical History: No Reported History Additional Family Medical History / Comment(s): Patient has one daughter with no major medical problems. Son(s) Family Medical History: No Reported History Additional Family Medical History / Comment(s): Patient has 3 sons with no major medical problems. <Luis Alberto Reid - Last Filed: 05/20/20 17:27> General Exam General appearance: alert, in no apparent distress, appears intoxicated Head exam: Present: atraumatic, normocephalic, normal inspection Eye exam: Present: normal appearance, PERRL, EOMI. Absent: scleral icterus, conjunctival injection, periorbital swelling ENT exam: Present: normal exam, mucous membranes moist Neck exam: Present: normal inspection. Absent: tenderness, meningismus, lymphadenopathy Respiratory exam: Present: normal lung sounds bilaterally. Absent: respiratory distress, wheezes, rales, rhonchi, stridor Cardiovascular Exam: Present: regular rate, normal rhythm, normal heart sounds. Absent: systolic murmur, diastolic murmur, rubs, gallop, clicks GI/Abdominal exam: Present: soft, normal bowel sounds. Absent: distended, tenderness, guarding, rebound, rigid Extremities exam: Present: normal inspection, full ROM, normal capillary refill. Absent: tenderness, pedal edema, joint swelling, calf tenderness Back exam: Present: normal inspection Neurological exam: Present: alert, oriented X3, CN II-XII intact Psychiatric exam: Present: normal affect, normal mood Skin exam: Present: warm, dry, intact, normal color. Absent: rash <Luis Alberto Reid - Last Filed: 05/20/20 17:27> Course <Luis Alberto Reid - Last Filed: 05/20/20 17:27> Vital Signs 05/19/20 05/20/20 19:23 06:35 Temperature 97.5 F L 98.3 F Pulse Rate 103 H 58 L Respiratory 18 20 Rate Blood Pressure 142/87 126/61 O2 Sat by Pulse 96 97 Oximetry - Reevaluation(s) Reevaluation #1: 05/19/20 19:36 Medical records reviewed (Luis Alberto Reid) Reevaluation #2: 05/19/20 19:36 Patient is intoxicated, sober 0400 Will be medically clear Patient requesting medication to sleep given (Luis Alberto Reid) Medical Decision Making <Luis Alberto Reid - Last Filed: 05/20/20 17:27> - Medical Decision Making 35 female who presented with significant alcohol intoxication for suicidal thoughts and etc. per family. Patient was seen and evaluated psychiatry is okay for discharge (Luis Alberto Reid) - Lab Data Lab Results 05/20/20 Range/Units 04:27 Urine Opiates Screen Not Detected (NotDetected) Ur Oxycodone Screen Not Detected (NotDetected) Urine Methadone Screen Not Detected (NotDetected) Ur Propoxyphene Screen Not Detected (NotDetected) Ur Barbiturates Screen Not Detected (NotDetected) U Tricyclic Antidepress Not Detected (NotDetected) Ur Phencyclidine Scrn Not Detected (NotDetected) Ur Amphetamines Screen Not Detected (NotDetected) U Methamphetamines Scrn Not Detected (NotDetected) U Benzodiazepines Scrn Not Detected (NotDetected) Urine Cocaine Screen Not Detected (NotDetected) U Marijuana (THC) Screen Not Detected (NotDetected) Disposition <Richie Carter - Last Filed: 05/20/20 06:41> Is patient prescribed a controlled substance at d/c from ED?: No <Luis Alberto Reid - Last Filed: 05/20/20 17:27> Clinical Impression: Mood disorder Disposition: HOME SELF-CARE Condition: Fair Instructions (If sedation given, give patient instructions): Mood Disorders (ED) Referrals: Elvis Gonzalez DO [REFERRING] - 1-2 days
[2020-05-19] MEDS ORDERED: NICOTINE 14MG/24HR PATCH TRANSDERM STA (21:19)
[2020-05-19] MEDS ORDERED: ZOLPIDEM 5 MG TAB PO STA (22:02)
[2020-05-20 04:55] LABS: Amphetamine Screen,Urine Not Detected (NotDetected); Barbiturate Screen,Urine Not Detected (NotDetected); Benzodiazepines Screen,Urine Not Detected (NotDetected); Cocaine Screen,Urine Not Detected (NotDetected); Methadone Screen, Urine Not Detected (NotDetected); Opiate Screen,Urine Not Detected (NotDetected); Oxycodone Screen, Urine Not Detected (NotDetected); Phencyclidine Screen,Urine Not Detected (NotDetected); Tricyclic Antidepressant,Urine Not Detected (NotDetected); Urn Cannabinoid Scrn Not Detected (NotDetected)
[2020-05-20 06:57] VITALS: BP 126/61; PULSE 58; RESP 20; TEMP 98.3
== END 2020-05-20 06:35 | disposition home or self-care (01) ==
LOC: EC 18:55
DX: F39 Unspecified mood [affective] disorder (principal); F10.129 Alcohol abuse with intoxication, unspecified; R45.851 Suicidal ideations; Z88.2 Allergy status to sulfonamides
CPT/HCPCS: 82075; 80306; 99285; S4990

== ENCOUNTER 2020-06-15 03:24 | Emergency (ER) | payer OTHER ==
[2020-06-15 03:31] VITALS: RESP 16; TEMP 97.6
--- NOTE | 2020-06-15 03:34 | ED ---
Anxiety HPI - General Chief Complaint: Anxiety Stated Complaint: Anxiety Time Seen by Provider: 06/15/20 03:28 Source: patient, EMS, RN notes reviewed, old records reviewed Mode of arrival: EMS - History of Present Illness Initial Comments: This is a 35-year-old female DF she is pending coming in for severe anxiety, not feeling well shortness of breath. Patient was very nervous and anxious at home she did call police and is brought to the hospital on arrival to Hospital patient states she wants no treatment is not homicidal or suicidal and is like discharge home she states she had a panic attack which is established been having frequently lately. MD Complaint: anxiety, other (going thru divorce) -: week(s) Symptoms: palpitations, sense of impending doom Place: home Previous History of Same: Yes Severity: severe Quality: worsening, similar to prior episodes Provoking factors: emotional stress, work/job stress Improves With: nothing Worsens With: nothing Associated symptoms: shortness of breath, palpitations - Related Data Home Medications: Home Medications Medication Instructions Recorded Confirmed Furosemide [Lasix] 40 mg PO BID 05/19/20 05/19/20 Spironolactone 150 mg PO DAILY 05/19/20 05/19/20 Unknown Blood Pressure Med 1 tab PO DAILY 05/19/20 05/19/20 Allergies/Adverse Reactions: Allergies Allergy/AdvReac Type Severity Reaction Status Date / Time Sulfa (Sulfonamide Allergy Rash/Hives Verified 06/15/20 03:31 Antibiotics) Review of Systems ROS Statement: Those systems with pertinent positive or pertinent negative responses have been documented in the HPI. ROS Other: All systems not noted in ROS Statement are negative. Past Medical History Past Medical History: No Reported History Additional Past Medical History / Comment(s): UNEXPLAINED WEIGHT LOSS. CT OF ABD. SHOWED "SOMETHING" IN THE INTESTINES History of Any Multi-Drug Resistant Organisms: None Reported Past Surgical History: Appendectomy, Cholecystectomy, Tonsillectomy, Tubal Ligation Additional Past Surgical History / Comment(s): Ovarian Cyst; Hemorrhoidectomy Additional Past Anesthesia/Blood Transfusion Reaction / Comment(s): WAKES UP CRYING. Past Psychological History: No Psychological Hx Reported Smoking Status: Current every day smoker Past Alcohol Use History: Daily Past Drug Use History: None Reported - Past Family History Mother Family Medical History: Osteoarthritis (OA) Additional Family Medical History / Comment(s): arthritis Father Family Medical History: No Reported History Additional Family Medical History / Comment(s): Father is alive in his 60s but she does not know any of his medical problems. Brother(s) Family Medical History: No Reported History Additional Family Medical History / Comment(s): Patient has 3 half-brothers with no major medical problems. Sister(s) Family Medical History: No Reported History Additional Family Medical History / Comment(s): Patient does not have any sisters. Daughter(s) Family Medical History: No Reported History Additional Family Medical History / Comment(s): Patient has one daughter with no major medical problems. Son(s) Family Medical History: No Reported History Additional Family Medical History / Comment(s): Patient has 3 sons with no major medical problems. General Exam Limitations: no limitations General appearance: appears intoxicated Head exam: Present: atraumatic, normocephalic, normal inspection Eye exam: Present: normal appearance, PERRL, EOMI. Absent: scleral icterus, conjunctival injection, periorbital swelling ENT exam: Present: normal exam, mucous membranes moist Neck exam: Present: normal inspection. Absent: tenderness, meningismus, lymphadenopathy Respiratory exam: Present: normal lung sounds bilaterally. Absent: respiratory distress, wheezes, rales, rhonchi, stridor Cardiovascular Exam: Present: regular rate, normal rhythm, normal heart sounds. Absent: systolic murmur, diastolic murmur, rubs, gallop, clicks GI/Abdominal exam: Present: soft, normal bowel sounds. Absent: distended, tenderness, guarding, rebound, rigid Extremities exam: Present: normal inspection, full ROM, normal capillary refill. Absent: tenderness, pedal edema, joint swelling, calf tenderness Back exam: Present: normal inspection Neurological exam: Present: alert, oriented X3, CN II-XII intact Psychiatric exam: Present: normal affect, normal mood Skin exam: Present: warm, dry, intact, normal color. Absent: rash Course Vital Signs 06/15/20 06/15/20 03:25 03:56 Temperature 97.6 F Pulse Rate 109 H 101 H Respiratory 16 16 Rate Blood Pressure 132/89 134/86 O2 Sat by Pulse 92 L 92 L Oximetry - Reevaluation(s) Reevaluation #1: Medical records reviewed Patient does have significant improvement here in the emergency department Patient informed results and questions answered Patient able ambulate without difficulty okay for discharge Medical Decision Making - Medical Decision Making 35 female DF for evaluation patient has significant anxiety here in the ER that is improved not homicidal or suicidal and can be discharged home Disposition Clinical Impression: Acute anxiety Disposition: HOME SELF-CARE Condition: Good Instructions (If sedation given, give patient instructions): Generalized Anxiety Disorder (ED) Is patient prescribed a controlled substance at d/c from ED?: No Referrals: None,Stated [Primary Care Provider] - 1-2 days
[2020-06-15] MEDS ORDERED: LORazepam 1 MG TAB PO STA (03:49)
[2020-06-15 04:00] VITALS: BP 134/86; PULSE 101
== END 2020-06-15 04:00 | disposition home or self-care (01) ==
LOC: EC 03:24
DX: F41.9 Anxiety disorder, unspecified (principal); F10.129 Alcohol abuse with intoxication, unspecified; F17.200 Nicotine dependence, unspecified, uncomplicated; Z88.2 Allergy status to sulfonamides
CPT/HCPCS: 99284

== ENCOUNTER 2020-10-02 14:06 | Emergency (ER) | payer OTHER ==
[2020-10-02 14:58] VITALS: TEMP 98.1
--- NOTE | 2020-10-02 15:34 | XR ---
EXAMINATION TYPE: XR knee complete LT DATE OF EXAM: 10/02/2020 COMPARISON: NONE HISTORY: Pain TECHNIQUE: Three views are submitted. FINDINGS: Joint spaces are preserved. Osseous structures are intact. No acute fracture seen. IMPRESSION: 1. No acute fracture or dislocation.
--- NOTE | 2020-10-02 16:22 | ED ---
Extremity Problem HPI - General Chief complaint: Extremity Problem,Nontraumatic Stated complaint: Lft knee pain Time Seen by Provider: 10/02/20 16:09 Source: patient, RN notes reviewed Mode of arrival: ambulatory Limitations: no limitations - History of Present Illness Initial comments: Patient is a 35-year-old female presents to emergency department with left knee pain. She noted that she week approximately a week ago and since and is just a nagging her, she decided come emergency room to get evaluated. She was in no apparent distress or pain while sitting in a chair during the exam interview. She is able walk on the knee with no issue. She notes it is more irritating than anything. She states that she has not been taking any pain medication at home as it has not been that bad. She did note that she was wrapped in Collin bandage to help with compression. She denied any known trauma or injury weakness numbness tingling decreased range of motion or strength. She denied any chest pain shortness of breath headache nausea vomiting diarrhea constipation. - Related Data Home Medications Medication Instructions Recorded Confirmed Furosemide [Lasix] 40 mg PO BID 05/19/20 05/19/20 Spironolactone 150 mg PO DAILY 05/19/20 05/19/20 Unknown Blood Pressure Med 1 tab PO DAILY 05/19/20 05/19/20 Allergies Allergy/AdvReac Type Severity Reaction Status Date / Time Sulfa (Sulfonamide Allergy Rash/Hives Verified 10/02/20 14:55 Antibiotics) Review of Systems ROS Statement: Those systems with pertinent positive or pertinent negative responses have been documented in the HPI. ROS Other: All systems not noted in ROS Statement are negative. Past Medical History Past Medical History: Liver Disease Additional Past Medical History / Comment(s): fatty liver History of Any Multi-Drug Resistant Organisms: None Reported Past Surgical History: Appendectomy, Cholecystectomy, Tonsillectomy, Tubal Ligation Additional Past Surgical History / Comment(s): Ovarian Cyst; Hemorrhoidectomy Additional Past Anesthesia/Blood Transfusion Reaction / Comment(s): WAKES UP CRYING. Past Psychological History: No Psychological Hx Reported Smoking Status: Current every day smoker Past Alcohol Use History: None Reported, Daily Past Drug Use History: None Reported - Past Family History Mother Family Medical History: Osteoarthritis (OA) Additional Family Medical History / Comment(s): arthritis Father Family Medical History: No Reported History Additional Family Medical History / Comment(s): Father is alive in his 60s but she does not know any of his medical problems. Brother(s) Family Medical History: No Reported History Additional Family Medical History / Comment(s): Patient has 3 half-brothers with no major medical problems. Sister(s) Family Medical History: No Reported History Additional Family Medical History / Comment(s): Patient does not have any sisters. Daughter(s) Family Medical History: No Reported History Additional Family Medical History / Comment(s): Patient has one daughter with no major medical problems. Son(s) Family Medical History: No Reported History Additional Family Medical History / Comment(s): Patient has 3 sons with no major medical problems. General Exam Limitations: no limitations General appearance: alert, in no apparent distress Head exam: Present: atraumatic, normocephalic, normal inspection Eye exam: Present: normal appearance, PERRL, EOMI. Absent: scleral icterus, conjunctival injection, periorbital swelling ENT exam: Present: normal exam, mucous membranes moist Neck exam: Present: normal inspection. Absent: tenderness, meningismus, lymphadenopathy Respiratory exam: Present: normal lung sounds bilaterally. Absent: respiratory distress, wheezes, rales, rhonchi, stridor Cardiovascular Exam: Present: regular rate, normal rhythm, normal heart sounds. Absent: systolic murmur, diastolic murmur, rubs, gallop, clicks GI/Abdominal exam: Present: soft, normal bowel sounds. Absent: distended, tenderness, guarding, rebound, rigid Extremities exam: Present: normal inspection, full ROM, tenderness (To the medial aspect of the left knee.), normal capillary refill. Absent: pedal edema, joint swelling, calf tenderness Neurological exam: Present: alert, oriented X3, CN II-XII intact Psychiatric exam: Present: normal affect, normal mood Skin exam: Present: warm, dry, intact, normal color. Absent: rash Course Vital Signs 10/02/20 14:55 Temperature 98.1 F Pulse Rate 99 Respiratory 18 Rate Blood Pressure 122/68 O2 Sat by Pulse 98 Oximetry Medical Decision Making - Medical Decision Making 34-year-old female complaining of left knee pain. Left knee x-ray ordered. X-ray was negative for fracture or dislocation. Case discussed with Dr. Helmreich, patient can discharge home. - Radiology Data Radiology results: report reviewed, image reviewed Left knee x-ray: No acute fracture or dislocation. Disposition Clinical Impression: Left knee sprain Disposition: HOME SELF-CARE Condition: Stable Instructions (If sedation given, give patient instructions): Knee Sprain (ED) Additional Instructions: Please return to the Emergency Department if symptoms worsen or any other concerns. Follow-up with primary care in 3-5 days. Rest ice compress and elevate. Use as tolerated. Take [id number] anti-inflammatories for symptomatic management. Is patient prescribed a controlled substance at d/c from ED?: No Referrals: None,Stated [Primary Care Provider] - 1-2 days Time of Disposition: 16:33
[2020-10-02 16:54] VITALS: BP 112/79; PULSE 86; RESP 16
== END 2020-10-02 16:53 | disposition home or self-care (01) ==
LOC: EC 14:06
DX: S83.92XA Sprain of unspecified site of left knee, initial encounter (principal); F17.200 Nicotine dependence, unspecified, uncomplicated; X58.XXXA Exposure to other specified factors, initial encounter
CPT/HCPCS: 99283

== ENCOUNTER 2020-12-31 23:50 | Emergency (ER) | payer OTHER ==
[2021-01-01] MEDS ORDERED: SODIUM CHLORIDE 0.9% 1,000 ML IV STA (00:28)
--- NOTE | 2021-01-01 00:32 | ED ---
General Adult HPI - General Chief complaint: Fever Stated complaint: Fever, jaundice Time Seen by Provider: 01/01/21 00:10 Source: patient, RN notes reviewed Mode of arrival: ambulatory Limitations: no limitations - History of Present Illness Initial comments: 35-year-old female with a past medical history of chronic alcoholism currently 6 months sober, alcoholic liver disease presents to the emergency room for a chief complaint of jaundice. Patient reports over the past few days she feels she is jaundiced. She states her urine may be slightly darker as well. She denies any abdominal pain. States that she thinks this could just be her anxiety but she wants to make sure that nothing is going on with her history of fatty liver.Patient has no other complaints at this time including shortness of breath, chest pain, abdominal pain, nausea or vomiting, headache, or visual changes. - Related Data Home Medications Medication Instructions Recorded Confirmed Furosemide [Lasix] 40 mg PO BID 05/19/20 05/19/20 Spironolactone 150 mg PO DAILY 05/19/20 05/19/20 Unknown Blood Pressure Med 1 tab PO DAILY 05/19/20 05/19/20 Allergies Allergy/AdvReac Type Severity Reaction Status Date / Time Sulfa (Sulfonamide Allergy Rash/Hives Verified 01/01/21 00:02 Antibiotics) Review of Systems ROS Statement: Those systems with pertinent positive or pertinent negative responses have been documented in the HPI. ROS Other: All systems not noted in ROS Statement are negative. Past Medical History Past Medical History: Liver Disease Additional Past Medical History / Comment(s): fatty liver History of Any Multi-Drug Resistant Organisms: None Reported Past Surgical History: Appendectomy, Cholecystectomy, Tonsillectomy, Tubal Ligation Additional Past Surgical History / Comment(s): Ovarian Cyst; Hemorrhoidectomy Additional Past Anesthesia/Blood Transfusion Reaction / Comment(s): WAKES UP CRYING. Past Psychological History: No Psychological Hx Reported Smoking Status: Current every day smoker Past Alcohol Use History: None Reported, Daily Past Drug Use History: None Reported - Past Family History Mother Family Medical History: Osteoarthritis (OA) Additional Family Medical History / Comment(s): arthritis Father Family Medical History: No Reported History Additional Family Medical History / Comment(s): Father is alive in his 60s but she does not know any of his medical problems. Brother(s) Family Medical History: No Reported History Additional Family Medical History / Comment(s): Patient has 3 half-brothers with no major medical problems. Sister(s) Family Medical History: No Reported History Additional Family Medical History / Comment(s): Patient does not have any sisters. Daughter(s) Family Medical History: No Reported History Additional Family Medical History / Comment(s): Patient has one daughter with no major medical problems. Son(s) Family Medical History: No Reported History Additional Family Medical History / Comment(s): Patient has 3 sons with no major medical problems. General Exam Limitations: no limitations General appearance: alert, in no apparent distress Head exam: Present: atraumatic, normocephalic, normal inspection Eye exam: Present: normal appearance, PERRL, EOMI. Absent: scleral icterus, conjunctival injection, periorbital swelling ENT exam: Present: normal exam, mucous membranes moist Neck exam: Present: normal inspection, full ROM. Absent: tenderness, meningismus, lymphadenopathy Respiratory exam: Present: normal lung sounds bilaterally. Absent: respiratory distress, wheezes, rales, rhonchi, stridor Cardiovascular Exam: Present: regular rate, normal rhythm, normal heart sounds. Absent: systolic murmur, diastolic murmur, rubs, gallop, clicks GI/Abdominal exam: Present: soft, normal bowel sounds. Absent: distended, tenderness, guarding, rebound, rigid Neurological exam: Present: alert Course Vital Signs 01/01/21 01/01/21 01/01/21 00:00 01:18 02:01 Temperature 97.6 F 98.1 F Pulse Rate 116 H 101 H 103 H Respiratory 20 18 18 Rate Blood Pressure 164/77 135/75 140/76 O2 Sat by Pulse 97 96 97 Oximetry Medical Decision Making - Medical Decision Making Vitals are stable. Mild anemia on CBC. CMP reveals mild hypokalemia, replaced orally. Bilirubin only minimally elevated 2.0. Urinalysis and coronavirus unremarkable. Ultrasound shows fatty liver without dilated ducts. At this time patient reevaluated, feeling well. Stable for discharge home. At when she follow-up with her doctor and return for any worsening symptoms. - Lab Data Result diagrams: 01/01/21 00:47 01/01/21 00:47 Lab Results 01/01/21 01/01/21 01/01/21 Range/Units 00:47 00:47 00:47 WBC 8.8 (3.8-10.6) k/uL RBC 4.76 (3.80-5.40) m/uL Hgb 10.8 L (11.4-16.0) gm/dL Hct 33.4 L (34.0-46.0) % MCV 70.2 L (80.0-100.0) fL MCH 22.7 L (25.0-35.0) pg MCHC 32.3 (31.0-37.0) g/dL RDW 18.8 H (11.5-15.5) % Plt Count 105 L (150-450) k/uL MPV 6.9 Neutrophils % 63 % Lymphocytes % 19 % Monocytes % 13 % Eosinophils % 3 % Basophils % 1 % Neutrophils # 5.6 (1.3-7.7) k/uL Lymphocytes # 1.7 (1.0-4.8) k/uL Monocytes # 1.1 H (0-1.0) k/uL Eosinophils # 0.3 (0-0.7) k/uL Basophils # 0.1 (0-0.2) k/uL Hypochromasia Moderate Anisocytosis Slight Microcytosis Marked Sodium 138 (137-145) mmol/L Potassium 3.2 L (3.5-5.1) mmol/L Chloride 102 (98-107) mmol/L Carbon Dioxide 28 (22-30) mmol/L Anion Gap 8 mmol/L BUN 2 L (7-17) mg/dL Creatinine 0.51 L (0.52-1.04) mg/dL Est GFR (CKD-EPI)AfAm >90 (>60 ml/min/1.73 sqM) Est GFR (CKD-EPI)NonAf >90 (>60 ml/min/1.73 sqM) Glucose 106 H (74-99) mg/dL Calcium 9.6 (8.4-10.2) mg/dL Total Bilirubin 2.0 H (0.2-1.3) mg/dL AST 62 H (14-36) U/L ALT 32 (4-34) U/L Alkaline Phosphatase 195 H (38-126) U/L Total Protein 7.3 (6.3-8.2) g/dL Albumin 4.4 (3.5-5.0) g/dL Amylase 53 (30-110) U/L Lipase 133 (23-300) U/L Urine Color Yellow Urine Appearance Clear (Clear) Urine pH 6.5 (5.0-8.0) Ur Specific [place] 1.010 (1.001-1.035) Urine Protein Negative (Negative) Urine Glucose (UA) Negative (Negative) Urine Ketones Negative (Negative) Urine Blood Negative (Negative) Urine Nitrite Negative (Negative) Urine Bilirubin Negative (Negative) Urine Urobilinogen 3.0 (<2.0) mg/dL Ur Leukocyte Esterase Negative (Negative) Urine HCG, Qual (Not Detectd) Coronavirus (PCR) (Not Detectd) 01/01/21 01/01/21 Range/Units 00:47 00:47 WBC (3.8-10.6) k/uL RBC (3.80-5.40) m/uL Hgb (11.4-16.0) gm/dL Hct (34.0-46.0) % MCV (80.0-100.0) fL MCH (25.0-35.0) pg MCHC (31.0-37.0) g/dL RDW (11.5-15.5) % Plt Count (150-450) k/uL MPV Neutrophils % % Lymphocytes % % Monocytes % % Eosinophils % % Basophils % % Neutrophils # (1.3-7.7) k/uL Lymphocytes # (1.0-4.8) k/uL Monocytes # (0-1.0) k/uL Eosinophils # (0-0.7) k/uL Basophils # (0-0.2) k/uL Hypochromasia Anisocytosis Microcytosis Sodium (137-145) mmol/L Potassium (3.5-5.1) mmol/L Chloride (98-107) mmol/L Carbon Dioxide (22-30) mmol/L Anion Gap mmol/L BUN (7-17) mg/dL Creatinine (0.52-1.04) mg/dL Est GFR (CKD-EPI)AfAm (>60 ml/min/1.73 sqM) Est GFR (CKD-EPI)NonAf (>60 ml/min/1.73 sqM) Glucose (74-99) mg/dL Calcium (8.4-10.2) mg/dL Total Bilirubin (0.2-1.3) mg/dL AST (14-36) U/L ALT (4-34) U/L Alkaline Phosphatase (38-126) U/L Total Protein (6.3-8.2) g/dL Albumin (3.5-5.0) g/dL Amylase (30-110) U/L Lipase (23-300) U/L Urine Color Urine Appearance (Clear) Urine pH (5.0-8.0) Ur Specific [place] (1.001-1.035) Urine Protein (Negative) Urine Glucose (UA) (Negative) Urine Ketones (Negative) Urine Blood (Negative) Urine Nitrite (Negative) Urine Bilirubin (Negative) Urine Urobilinogen (<2.0) mg/dL Ur Leukocyte Esterase (Negative) Urine HCG, Qual Not Detected (Not Detectd) Coronavirus (PCR) Not Detected (Not Detectd) Disposition Clinical Impression: Normal skin appearance, Elevated bilirubin Disposition: HOME SELF-CARE Condition: Good Instructions (If sedation given, give patient instructions): Jaundice (ED) Additional Instructions: Please follow-up with your doctor in one to 2 days. Return to the emergency room for any worsening symptoms. Is patient prescribed a controlled substance at d/c from ED?: No Referrals: Elvis Gonzalez DO [Primary Care Provider] - 1-2 days Time of Disposition: 02:41
[2021-01-01 01:00] LABS: Anisocytosis Slight; Basophils # (A) 0.1 k/uL (0-0.2); Basophils % (A) 1 %; Eosinophils # (A) 0.3 k/uL (0-0.7); Eosinophils % (A) 3 %; HCT 33.4 % (34.0-46.0); HGB 10.8 gm/dL (11.4-16.0); Hypochromasia Moderate; Lymphocytes # (A) 1.7 k/uL (1.0-4.8); Lymphocytes % (A) 19 %; MCH 22.7 pg (25.0-35.0); MCHC 32.3 g/dL (31.0-37.0); MCV 70.2 fL (80.0-100.0); Mean Platelet Volume 6.9; Microcytosis Marked; Monocytes # (A) 1.1 k/uL (0-1.0); Monocytes % (A) 13 %; Neutrophils # (A) 5.6 k/uL (1.3-7.7); Neutrophils % (A) 63 %; Platelet Count 105 k/uL (150-450); RBC 4.76 m/uL (3.80-5.40); RDW 18.8 % (11.5-15.5); WBC 8.8 k/uL (3.8-10.6)
[2021-01-01 01:09] LABS: Appearance,Urine Clear (Clear); Bilirubin,Urine Negative (Negative); Blood,Urine Negative (Negative); Color,Urine Yellow; Glucose,Urine (UA) Negative (Negative); Ketones,Urine Negative (Negative); Leukocyte Esterase,Urine Negative (Negative); Nitrite,Urine Negative (Negative); PH, Urine 6.5 (5.0-8.0); Protein,Urine Negative (Negative)
[2021-01-01 01:14] LABS: ALT 32 U/L (4-34); AST 62 U/L (14-36); African American GFR (CKD) >90 (>60 ml/min/1.73 sqM); Albumin 4.4 g/dL (3.5-5.0); Alkaline Phosphatase 195 U/L (38-126); Amylase 53 U/L (30-110); Anion Gap 8 mmol/L; Blood Urea Nitrogen 2 mg/dL (7-17); Calcium 9.6 mg/dL (8.4-10.2); Carbon Dioxide 28 mmol/L (22-30); Chloride 102 mmol/L (98-107); Glucose 106 mg/dL (74-99); Lipase 133 U/L (23-300); Non-African American GFR(CKD) >90 (>60 ml/min/1.73 sqM); Potassium 3.2 mmol/L (3.5-5.1); Sodium 138 mmol/L (137-145); Total Protein 7.3 g/dL (6.3-8.2)
--- NOTE | 2021-01-01 01:30 | US ---
EXAMINATION TYPE: US abdomen limited DATE OF EXAM: 01/01/2021 COMPARISON: US, CT CLINICAL HISTORY: ruq. RUQ. Hx cholecystectomy, appendectomy, alcohol abuse. EXAM MEASUREMENTS: Liver Length: 17.95 cm Gallbladder Wall: Hx cholecystectomy. CBD: Not visualized. Right Kidney: 11.0 x 5.8 x 3.9 cm Limited visibility of IVC. Limited due to overlying bowel gas and patient body habitus. Pancreas: Limited visibility. Liver: Appears to be heterogeneous and enlarged. Evidence for sonographic Burr's sign: No CBD: Not visualized. Right Kidney: No hydronephrosis or masses seen IMPRESSION: There is some heterogeneity in the liver suggestive of fatty infiltration. No dilated ducts. Gallblad gabriella is absent. Right kidney shows no sign of obstruction. No ascites.
[2021-01-01] MEDS ORDERED: POTASSIUM CHLORIDE ER 20 MEQ TAB.ER PO STA (01:46)
[2021-01-01 02:54] VITALS: BP 127/70; PULSE 105; RESP 16; TEMP 98
== END 2021-01-01 02:54 | disposition home or self-care (01) ==
LOC: EC 23:50
DX: E80.7 Disorder of bilirubin metabolism, unspecified (principal); F17.200 Nicotine dependence, unspecified, uncomplicated; Z90.89 Acquired absence of other organs; Z90.49 Acquired absence of other specified parts of digestive tract; Z90.09 Acquired absence of other part of head and neck; Z98.51 Tubal ligation status; Z20.822 Contact with and (suspected) exposure to COVID-19
CPT/HCPCS: 36415; 76705; 80053; 81003; 81025; 82150; 83690; 85025; 87635; 96360; 99284

== ENCOUNTER 2021-06-05 21:45 | Emergency (ER) | payer OTHER ==
[2021-06-05 22:26] VITALS: BP 141/68; PULSE 99; RESP 20; TEMP 98.3
--- NOTE | 2021-06-06 00:41 | ED ---
Recheck HPI - General Chief Complaint: Upper Respiratory Infection Stated Complaint: Wants COVID Test Time Seen by Provider: 06/06/21 00:18 Source: patient, RN notes reviewed, old records reviewed Mode of arrival: ambulatory Limitations: no limitations - History of Present Illness Initial Comments: This is a 36-year-old female to the ER for evaluation of possible coronavirus is positive for coronavirus here in the emergency department. Patient requesting management and antibody treatment. Patient will get antibody treatment and can be discharged home Complaint: abnormal lab (Patient believes she has coronavirus), medication refill request (Patient requesting antibody treatment) -: days(s) Returns Today for: request for prescription, persistent/worsening pain related to initial visit Symptoms Since Prior Visit: worsening pain Associated Symptoms: fever, chills, chest pain, shortness of breath, malaise, nausea Treatments Prior to Arrival: Given Pain Meds on - Related Data Home Medications Medication Instructions Recorded Confirmed Furosemide [Lasix] 40 mg PO BID 05/19/20 05/19/20 Spironolactone 150 mg PO DAILY 05/19/20 05/19/20 Unknown Blood Pressure Med 1 tab PO DAILY 05/19/20 05/19/20 Allergies Allergy/AdvReac Type Severity Reaction Status Date / Time Sulfa (Sulfonamide Allergy Rash/Hives Verified 06/05/21 22:26 Antibiotics) Review of Systems ROS Statement: Those systems with pertinent positive or pertinent negative responses have been documented in the HPI. ROS Other: All systems not noted in ROS Statement are negative. Past Medical History Past Medical History: Liver Disease Additional Past Medical History / Comment(s): fatty liver History of Any Multi-Drug Resistant Organisms: None Reported Past Surgical History: Appendectomy, Cholecystectomy, Tonsillectomy, Tubal Ligation Additional Past Surgical History / Comment(s): Ovarian Cyst; Hemorrhoidectomy Additional Past Anesthesia/Blood Transfusion Reaction / Comment(s): WAKES UP CRYING. Past Psychological History: No Psychological Hx Reported Smoking Status: Current every day smoker Past Alcohol Use History: None Reported, Daily Past Drug Use History: None Reported - Past Family History Mother Family Medical History: Osteoarthritis (OA) Additional Family Medical History / Comment(s): arthritis Father Family Medical History: No Reported History Additional Family Medical History / Comment(s): Father is alive in his 60s but she does not know any of his medical problems. Brother(s) Family Medical History: No Reported History Additional Family Medical History / Comment(s): Patient has 3 half-brothers with no major medical problems. Sister(s) Family Medical History: No Reported History Additional Family Medical History / Comment(s): Patient does not have any sisters. Daughter(s) Family Medical History: No Reported History Additional Family Medical History / Comment(s): Patient has one daughter with no major medical problems. Son(s) Family Medical History: No Reported History Additional Family Medical History / Comment(s): Patient has 3 sons with no major medical problems. General Exam Limitations: no limitations General appearance: alert, in no apparent distress Head exam: Present: atraumatic, normocephalic, normal inspection Eye exam: Present: normal appearance, PERRL, EOMI. Absent: scleral icterus, con junctival injection, periorbital swelling ENT exam: Present: normal exam, mucous membranes moist Neck exam: Present: normal inspection. Absent: tenderness, meningismus, lymphadenopathy Respiratory exam: Present: normal lung sounds bilaterally. Absent: respiratory distress, wheezes, rales, rhonchi, stridor Cardiovascular Exam: Present: regular rate, normal rhythm, normal heart sounds. Absent: systolic murmur, diastolic murmur, rubs, gallop, clicks GI/Abdominal exam: Present: soft, normal bowel sounds. Absent: distended, tenderness, guarding, rebound, rigid Extremities exam: Present: normal inspection, full ROM, normal capillary refill. Absent: tenderness, pedal edema, joint swelling, calf tenderness Back exam: Present: normal inspection Neurological exam: Present: alert, oriented X3, CN II-XII intact Psychiatric exam: Present: normal affect, normal mood Skin exam: Present: warm, dry, intact, normal color. Absent: rash Course Vital Signs 06/05/21 06/06/21 22:22 01:25 Temperature 98.3 F Pulse Rate 99 Respiratory 20 20 Rate Blood Pressure 141/68 O2 Sat by Pulse 97 Oximetry - Reevaluation(s) Reevaluation #1: Medical record is reviewed Patient symptoms are improved here in the ER Patient informed results and questions answered Medical Decision Making - Medical Decision Making 36 female to the emergency department for evaluation or stress normal oxygen no shortness of breath patient can antibody treatment today for coronavirus and can be discharged home - Lab Data Lab Results 06/05/21 Range/Units 22:26 Coronavirus (PCR) Detected A (Not Detectd) Disposition Clinical Impression: Coronavirus infection Disposition: HOME SELF-CARE Condition: Good Instructions (If sedation given, give patient instructions): Coronavirus Disease 2019 (COVID-19) Is patient prescribed a controlled substance at d/c from ED?: No Referrals: Elvis Gonzalez DO [Primary Care Provider] - 1-2 days
[2021-06-06] MEDS ORDERED: SODIUM CHLORIDE 0.9% 50 ML IVPB ONE (01:15)
[2021-06-06] MEDS ORDERED: CASIRIVIMAB (REGN10933) (EUA) 600 MG, IMDEVIMAB (REGN10987) (EUA) 600 MG in SODIUM CHLO... IVPB ONE (01:30)
== END 2021-06-06 02:55 | disposition home or self-care (01) ==
LOC: EC 21:45
DX: U07.1 COVID-19 (principal); F17.200 Nicotine dependence, unspecified, uncomplicated; Z88.2 Allergy status to sulfonamides
CPT/HCPCS: 99284; 87635; 96360; Q0243

== ENCOUNTER 2021-07-27 01:24 | Emergency (ER) | payer OTHER ==
[2021-07-27 01:34] VITALS: TEMP 98.1
[2021-07-27] MEDS: SODIUM CHLORIDE 0.9% 1,000 ML IV ONE (01:52)
[2021-07-27 02:07] LABS: Anisocytosis Slight; Basophils # (A) 0.1 k/uL (0-0.2); Basophils % (A) 1 %; Eosinophils # (A) 0.3 k/uL (0-0.7); Eosinophils % (A) 4 %; HCT 40.5 % (34.0-46.0); HGB 12.6 gm/dL (11.4-16.0); Hypochromasia Slight; Lymphocytes # (A) 1.8 k/uL (1.0-4.8); Lymphocytes % (A) 26 %; MCH 26.5 pg (25.0-35.0); MCHC 31.2 g/dL (31.0-37.0); MCV 84.9 fL (80.0-100.0); Monocytes # (A) 0.6 k/uL (0-1.0); Monocytes % (A) 8 %; Neutrophils # (A) 4.2 k/uL (1.3-7.7); Neutrophils % (A) 59 %; RBC 4.77 m/uL (3.80-5.40); RDW 16.9 % (11.5-15.5); WBC 7.1 k/uL (3.8-10.6)
[2021-07-27 02:12] LABS: Platelet Count 64 k/uL (150-450)
[2021-07-27 02:16] LABS: ALT 77 U/L (4-34); AST 277 U/L (14-36); African American GFR (CKD) >90 (>60 ml/min/1.73 sqM); Albumin 3.9 g/dL (3.5-5.0); Alkaline Phosphatase 293 U/L (38-126); Anion Gap 10 mmol/L; Blood Urea Nitrogen 4 mg/dL (7-17); Calcium 9.1 mg/dL (8.4-10.2); Carbon Dioxide 26 mmol/L (22-30); Chloride 106 mmol/L (98-107); Glucose 114 mg/dL (74-99); Non-African American GFR(CKD) >90 (>60 ml/min/1.73 sqM); Potassium 3.3 mmol/L (3.5-5.1); Sodium 142 mmol/L (137-145); Total Bilirubin 1.5 mg/dL (0.2-1.3); Total Protein 6.8 g/dL (6.3-8.2)
--- NOTE | 2021-07-27 03:54 | ED ---
Alcohol HPI - General Chief Complaint: Alcohol Stated Complaint: ETOH Time Seen by Provider: 07/27/21 01:26 Source: patient, EMS Mode of arrival: EMS - History of Present Illness Initial Comments: This patient is a 36-year-old woman who presents requesting help after drinking alcohol. Patient states that she had been a heavy drinker but had quit about a year ago. She states that today she drank over a pint of alcohol. The patient is concerned that she may have electrolyte problems. MD Complaint: alcohol intoxication Last Drink: just [employer] -: hour(s) Recent Trauma: No Associated Symptoms: denies other symptoms Chronic Alcohol Use: No - Related Data Home Medications Medication Instructions Recorded Confirmed Furosemide [Lasix] 40 mg PO BID 05/19/20 05/19/20 Spironolactone 150 mg PO DAILY 05/19/20 05/19/20 Unknown Blood Pressure Med 1 tab PO DAILY 05/19/20 05/19/20 Allergies Allergy/AdvReac Type Severity Reaction Status Date / Time Sulfa (Sulfonamide Allergy Rash/Hives Verified 07/27/21 01:28 Antibiotics) Review of Systems ROS Statement: Those systems with pertinent positive or pertinent negative responses have been documented in the HPI. ROS Other: All systems not noted in ROS Statement are negative. Constitutional: Denies: fever, chills, weakness Respiratory: Denies: cough, dyspnea Cardiovascular: Denies: chest pain, palpitations Gastrointestinal: Denies: abdominal pain, nausea, vomiting Musculoskeletal: Denies: back pain Skin: Denies: rash Neurological: Denies: headache, weakness Past Medical History Past Medical History: Liver Disease Additional Past Medical History / Comment(s): fatty liver History of Any Multi-Drug Resistant Organisms: None Reported Past Surgical History: Appendectomy, Cholecystectomy, Tonsillectomy, Tubal Ligation Additional Past Surgical History / Comment(s): Ovarian Cyst; Hemorrhoidectomy Additional Past Anesthesia/Blood Transfusion Reaction / Comment(s): WAKES UP CRYING. Past Psychological History: No Psychological Hx Reported Smoking Status: Current every day smoker Past Alcohol Use History: Daily Past Drug Use History: None Reported - Past Family History Mother Family Medical History: Osteoarthritis (OA) Additional Family Medical History / Comment(s): arthritis Father Family Medical History: No Reported History Additional Family Medical History / Comment(s): Father is alive in his 60s but she does not know any of his medical problems. Brother(s) Family Medical History: No Reported History Additional Family Medical History / Comment(s): Patient has 3 half-brothers with no major medical problems. Sister(s) Family Medical History: No Reported History Additional Family Medical History / Comment(s): Patient does not have any sisters. Daughter(s) Family Medical History: No Reported History Additional Family Medical History / Comment(s): Patient has one daughter with no major medical problems. Son(s) Family Medical History: No Reported History Additional Family Medical History / Comment(s): Patient has 3 sons with no major medical problems. General Exam General appearance: alert, in no apparent distress Head exam: Present: atraumatic, normocephalic Eye exam: Present: normal appearance. Absent: scleral icterus, conjunctival injection Neck exam: Present: normal inspection Respiratory exam: Present: normal lung sounds bilaterally. Absent: respiratory distress, wheezes, rales, rhonchi, stridor Cardiovascular Exam: Present: regular rate, normal rhythm, normal heart sounds. Absent: systolic murmur, diastolic murmur, rubs, gallop GI/Abdominal exam: Present: soft. Absent: distended, tenderness, guarding, re bound, rigid, mass Extremities exam: Present: normal inspection, normal capillary refill. Absent: pedal edema, calf tenderness Back exam: Present: normal inspection. Absent: CVA tenderness (R), CVA tenderness (L) Neurological exam: Present: alert Skin exam: Present: warm, dry, intact, normal color. Absent: rash Course Vital Signs 07/27/21 07/27/21 07/27/21 01:28 02:45 04:06 Temperature 98.1 F Pulse Rate 131 H 86 84 Respiratory 20 16 15 Rate Blood Pressure 167/97 131/74 136/77 O2 Sat by Pulse 95 95 98 Oximetry Medical Decision Making - Lab Data Result diagrams: 07/27/21 01:53 07/27/21 01:53 Lab Results 07/27/21 07/27/21 07/27/21 Range/Units 01:53 01:53 01:53 WBC 7.1 (3.8-10.6) k/uL RBC 4.77 (3.80-5.40) m/uL Hgb 12.6 (11.4-16.0) gm/dL Hct 40.5 (34.0-46.0) % MCV 84.9 (80.0-100.0) fL MCH 26.5 (25.0-35.0) pg MCHC 31.2 (31.0-37.0) g/dL RDW 16.9 H (11.5-15.5) % Plt Count 64 L (150-450) k/uL MPV 8.0 Neutrophils % 59 % Lymphocytes % 26 % Monocytes % 8 % Eosinophils % 4 % Basophils % 1 % Neutrophils # 4.2 (1.3-7.7) k/uL Lymphocytes # 1.8 (1.0-4.8) k/uL Monocytes # 0.6 (0-1.0) k/uL Eosinophils # 0.3 (0-0.7) k/uL Basophils # 0.1 (0-0.2) k/uL Hypochromasia Slight Anisocytosis Slight Sodium 142 (137-145) mmol/L Potassium 3.3 L (3.5-5.1) mmol/L Chloride 106 (98-107) mmol/L Carbon Dioxide 26 (22-30) mmol/L Anion Gap 10 mmol/L BUN 4 L (7-17) mg/dL Creatinine 0.52 (0.52-1.04) mg/dL Est GFR (CKD-EPI)AfAm >90 (>60 ml/min/1.73 sqM) Est GFR (CKD-EPI)NonAf >90 (>60 ml/min/1.73 sqM) Glucose 114 H (74-99) mg/dL Calcium 9.1 (8.4-10.2) mg/dL Magnesium 1.7 (1.6-2.3) mg/dL Total Bilirubin 1.5 H (0.2-1.3) mg/dL AST 277 H (14-36) U/L ALT 77 H (4-34) U/L Alkaline Phosphatase 293 H (38-126) U/L Total Protein 6.8 (6.3-8.2) g/dL Albumin 3.9 (3.5-5.0) g/dL Disposition Clinical Impression: Alcohol abuse, Hypokalemia, Transaminitis Disposition: HOME SELF-CARE Condition: Good Instructions (If sedation given, give patient instructions): Alcohol Intoxication (ED) Is patient prescribed a controlled substance at d/c from ED?: No Referrals: Elvis Gonzalez DO [Primary Care Provider] - 1-2 days
[2021-07-27] MEDS: POTASSIUM CHLORIDE ER 20 MEQ TAB.ER PO STA (03:58)
[2021-07-27 04:08] VITALS: BP 136/77; PULSE 84; RESP 15
== END 2021-07-27 04:06 | disposition home or self-care (01) ==
LOC: EC 01:24
DX: F10.10 Alcohol abuse, uncomplicated (principal); E87.6 Hypokalemia; R74.01 Elevation of levels of liver transaminase levels; F17.200 Nicotine dependence, unspecified, uncomplicated; Z88.2 Allergy status to sulfonamides
CPT/HCPCS: 36415; 80053; 83735; 85025; 96360; 99284